=== PATIENT | female | born 1950 | race Caucasian/White ===

== ENCOUNTER 2019-11-07 01:40 | Outpatient (CLI) | payer MEDICARE, BC, SELFPAY ==
[2019-11-07 18:23] LABS: SARS-CoV-2 RNA PCR Negative
== END 2019-11-07 01:41 | disposition home or self-care (01) ==
LOC: ANHCOVIDDT 01:41
PROVIDERS: PCP Family Medicine; Visit Provider Internal Medicine Cardiovascular Disease
DX: Z01.812 Encounter for preprocedural laboratory examination (principal); Z20.828 Contact with and (suspected) exposure to other viral communicable diseases
CPT/HCPCS: 87635; C9803; U0003

== ENCOUNTER 2019-11-09 07:25 | Day surgery (SDC) | payer MEDICARE, BC, SELFPAY ==
[2019-11-08 10:56] VITALS: BMI 29.8
[2019-11-09] VITALS (9 sets, daily range): BP systolic 119–154; BP diastolic 75–103; PULSE 75–99; RESP 15–18; TEMP 36.2–37.1; O2SAT 95–99; BMI 30.5
--- NOTE | 2019-11-09 08:24 | PM.IMHP ---
H&P: HPI History of Present Illness Date/Time: 11/09/19 08:24 Chief complaint: Abnormal Stress Test/ Cardiomyopathy Narrative: Date of service: 11/09/2019 Janeth Fiore is a 69 year old female with history of cardiomyopathy and abnormal stress test, PARRISH, here for elective left heart catheterization with possible PCI. Her ejection fraction 30-35 last couple years and she has had progressive PARRISH for 8 months. The Lexiscan stress test in September 2019 showed an ejection fraction of 35%, moderate LV dysfunction, hypokinesis of the anterior segment, akinesis of the apical anterior and apical septal segments, a fixed apical anterior defect with mild kishore-infarct ischemia. In 2017 her stress test showed a small fixed apical defect factor apical thinning. She has not had any typical angina. She also has a history of PAF, on Pradaxa ( held for 2 days), TIA, LBBB, hypertension, hyponatremia ( secondary HCTZ ) and hyperlipidemia. She has multiple medication intolerances. She has history of allergy to shellfish but current thinking is, according to Up to Date, that shellfish allergies do not signify allergies to IV contrast and prophylaxis is not indicated. Review of Systems Constitutional: Constitutional: Reports fatigue and Reports lethargy Eyes: Eyes: Reports no additional eye complaints ENT: Denies epistaxis Cardiovascular: Cardiovascular: Denies chest pain, Denies pedal edema, Denies leg edema and Denies palpitations Respiratory: Respiratory: Denies chest congestion, Reports dyspnea and Reports dyspnea on exertion Gastrointestinal: Gastrointestinal: Denies abdominal pain and Denies hematochezia Genitourinary: Genitourinary: Denies hematuria Musculoskeletal: Musculoskeletal: Reports back pain Integumentary/Breasts: Skin/Breast: Denies rash Neurologic: Reports headache(s) (Miograines) Psychiatric: Psychiatric: Reports anxiety (Expresses apprehension about the cath) and Reports depression PMF Past Medical History Medical History (Updated 11/09/19 @ 08:35 by Janessa Leo MD) Anxiety and depression Basal cell carcinoma Cardiomyopathy Drug intolerance multiple drug intolerances including migraine secondary to valsartan and lisinopril, losartan causing abdominal pain and diarrhea and others. Hyperlipidemia Hypertension Hyponatremia LBBB (left bundle branch block) Migraine PAF (paroxysmal atrial fibrillation) TIA (transient ischemic attack) Family History Family History (Updated 11/09/19 @ 08:34 by Janessa Leo MD) Father Heart disease CABG in her early 50s redo in early 60s Hypertension Diabetes mellitus Social History Social History (Updated 11/09/19 @ 08:34 by Janessa Leo MD) Social History: , has grandchildren Smoking status: Never smoker Second hand tobacco smoke exposure: No Substance use: never Living arrangements: with family Spiritual care concerns: No Meds Home Medications and Allergies Home Medications Medication Instructions Recorded Confirmed Type Pradaxa 150 mg PO DAILY 01/14/19 11/08/19 History atorvastatin 10 mg PO DAILY 01/14/19 11/08/19 History odjomrtpgc-cizqdlxrpyprx-oggm 1 cap PO Q4-6H PRN #20 cap 01/14/19 11/08/19 Rx [Fioricet] diltiazem HCl 60 mg PO TID 01/14/19 11/08/19 History doxazosin 1 mg PO DAILY 01/14/19 11/08/19 History lorazepam 0.5 mg PO BID PRN 01/14/19 11/08/19 History metoprolol tartrate 100 mg PO Q12H 01/14/19 11/08/19 History dabigatran etexilate [Pradaxa] 150 mg PO DAILY 11/08/19 11/08/19 History fluticasone propionate INTRANASAL 11/08/19 History gabapentin 100 mg PO TID 11/08/19 11/08/19 History Allergies Allergy/AdvReac Type Severity Reaction Status Date / Time cefaclor Allergy Intermediate RASH Verified 10/03/17 22:22 lisinopril Allergy Unknown TINGLING Verified 07/25/18 18:15 ALL OVER/NAUSEA/HEADACHES losartan Allergy Unknown ACUTE ABD Verified 07/25/18 18:15 PAIN Penicillins Allerg
[2019-11-09 08:25] LABS: Basophils Absolute Auto 0.1 K/mm3 (0.0-0.1); Basophils Percent Auto 0.8 % (0.2-1.2); Eosinophils Absolute Auto 0.3 K/mm3 (0-0.3); Hematocrit 38.5 % (37.0-47.0); Hemoglobin 12.9 g/dL (12.0-15.0); Immature Granulocyte Absolute 0.03 K/mm3 (0.00-0.031); Immature Granulocyte Percent A 0.4 % (0-0.5); Lymphocytes Absolute Auto 1.94 K/mm3 (0.9-3.2); Lymphocytes Percent Auto 25.3 % (18.3-44.2); Mean Corpuscular HGB Conc 33.5 g/dl (32-36); Mean Corpuscular Hemoglobin 29.5 pg (26-34); Mean Corpuscular Volume 87.9 fl (80-100); Mean Platelet Volume 10.2 fl (7.4-10.4); Monocytes Absolute Auto 0.7 K/mm3 (0.1-0.6); Monocytes Percent Auto 8.9 % (2.6-8.5); Neutrophils Absolute Auto 4.7 K/mm3 (1.3-6.7); Neutrophils Percent Auto 60.6 % (45.5-73.1); Platelet Count Result 231 k/mm3 (150-375); Red Blood Count 4.38 M/mm3 (4.2-5.4); Red Cell Distribution Width 13.9 % (11.5-14.5); White Blood Count 7.7 K/mm3 (4.5-10.0)
[2019-11-09 08:34] LABS: Prothrombin Time 13.1 Seconds (11.1-14.7)
--- NOTE | 2019-11-09 08:36 | WPDMODSED ---
Moderate Sedation Note-Pt Data Patient Data Diagnosis: PARRISH, cardiomyopathy, abnormal stress test Present Complaint: PARRISH, cardiomyopathy, abnormal stress test Procedure to be performed/Plan: conscious sedation left heart catheterization possible PCI Allergies Allergy/AdvReac Type Severity Reaction Status Date / Time cefaclor Allergy Intermediate RASH Verified 10/03/17 22:22 lisinopril Allergy Unknown TINGLING Verified 07/25/18 18:15 ALL OVER/NAUSEA/HEADACHES losartan Allergy Unknown ACUTE ABD Verified 07/25/18 18:15 PAIN Penicillins Allergy Unknown Rash Verified 11/08/19 10:49 spironolactone Allergy Unknown TINGLING Verified 07/25/18 18:15 ALL OVER/BROUGHT ON ATRIAL FIB ATTACKS erythromycin base AdvReac Intermediate VOMITING. Verified 10/03/17 22:22 codeine AdvReac Vomiting Verified 11/08/19 10:49 lactase [From Dairy Aid] AdvReac Diarrhea Verified 11/09/19 08:37 mushroom AdvReac Abdominal Verified 11/09/19 08:37 Pain valsartan AdvReac Migraine Verified 11/08/19 10:49 seafood AdvReac Abdominal Uncoded 11/09/19 08:37 Pain Home Medications Medication Instructions Recorded Confirmed Type Pradaxa 150 mg PO DAILY 01/14/19 11/08/19 History atorvastatin 10 mg PO DAILY 01/14/19 11/08/19 History ynzzkprxbq-obixobiobeifb-qvck 1 cap PO Q4-6H PRN #20 cap 01/14/19 11/08/19 Rx [Fioricet] diltiazem HCl 60 mg PO TID 01/14/19 11/08/19 History doxazosin 1 mg PO DAILY 01/14/19 11/08/19 History lorazepam 0.5 mg PO BID PRN 01/14/19 11/08/19 History metoprolol tartrate 100 mg PO Q12H 01/14/19 11/08/19 History dabigatran etexilate [Pradaxa] 150 mg PO DAILY 11/08/19 11/08/19 History fluticasone propionate INTRANASAL 11/08/19 History gabapentin 100 mg PO TID 11/08/19 11/08/19 History Current Medications: Active Medications Sodium Chloride (Normal Saline Iv) 500 mls @ 100 mls/hr IV CONT .Q5H YUNI Sedation/Anesthesia: No previous sedation/anesthesia problems (including family history). [facility] Past Medical History Medical History (Updated 11/09/19 @ 08:35 by Janessa Leo MD) Anxiety and depression Basal cell carcinoma Cardiomyopathy Drug intolerance multiple drug intolerances including migraine secondary to valsartan and lisinopril, losartan causing abdominal pain and diarrhea and others. Hyperlipidemia Hypertension Hyponatremia LBBB (left bundle branch block) Migraine PAF (paroxysmal atrial fibrillation) TIA (transient ischemic attack) Family History Family History (Updated 11/09/19 @ 08:34 by Janessa Leo MD) Father Heart disease CABG in her early 50s redo in early 60s Hypertension Diabetes mellitus Social History Social History (Updated 11/09/19 @ 08:34 by Janessa Leo MD) Social History: , has grandchildren Smoking status: Never smoker Second hand tobacco smoke exposure: No Substance use: never Living arrangements: with family Spiritual care concerns: No Mod Sed Physical Exam Physical Exam Pre Procedural Exam: Normal: Appearance, Eyes, Ears, Nose, Neck, Throat, Airway, Lungs, Heart Size, Heart Rate, Heart Rhythm, Neuro Exam, Abdomen, Genitalia, Extremities and Skin Hours since solid foods: 12 Hours since liquid intake: 12 Internal Medicine - PN: Obj Da Meds/Results Medications: Active Medications Generic Name Dose Route Start Last Admin Trade Name Shahidq PRN Reason Stop Dose Admin Sodium Chloride 500 mls @ 100 mls/hr 11/09/19 07:00 Normal Saline Iv IV CONT .Q5H YUNI Labs CBC & Chem 7: 11/09/19 08:19 11/09/19 08:19 Labs: Laboratory Results - last 24 hr 11/09/19 11/09/19 08:19 08:19 WBC 7.7 RBC 4.38 Hgb 12.9 Hct 38.5 MCV 87.9 MCH 29.5 MCHC 33.5 RDW 13.9 Plt Count 231 MPV 10.2 Immature Gran % (Auto) 0.4 Neut % (Auto) 60.6 Lymph % (Auto) 25.3 [place] % (Auto) 8.9 H Eos % (Auto) 4.0 Baso % (Auto) 0.8 Lymph # (Auto)
[2019-11-09 08:37] LABS: Anion Gap 8 mmol/L (8-16); Blood Urea Nitrogen 7 mg/dL (7-17); Calcium 8.9 mg/dL (8.4-10.2); Carbon Dioxide 22 mmol/L (22-30); Chloride 103 mmol/L (98-107); Estimated CRCL calculation 79 ml/min; Estimated Glomerular Filt Rate > 60; Glucose 114 mg/dL (65-105); Potassium 3.9 mmol/L (3.4-5.0); Sodium 133 mmol/L (137-145)
--- NOTE | 2019-11-09 08:42 | SUR.PREOP ---
Patient arrived to [facility] DESK CL[facility] 5 with . PIV established and labs obtained and sent. Distal pulses assessed and groins prepped per policy. Patient and updated on plan of care and verbalize understanding. Will continue to monitor patient closely.
--- NOTE | 2019-11-09 09:51 | PM.OP ---
Procedure Note - Brief Procedure Note - Brief Date of procedure: 11/09/19 Pre-op diagnosis: Abnormal Stress Test/ Cardiomyopathy Post-op diagnosis: other ( nonischemic cardiomyopathy, mild CAD, mitral regurgitation) Procedure performed: conscious sedation left heart catheterization Description of procedure: uneventful left heart catheterization Anesthesia: local ( with conscious sedation) Surgeon: Janessa Leo MD Drains: No Packing: No Pathology: none sent Complications: No immediate complications Condition: stable Disposition: observation Findings: 40-50% mid Left anterior descending stenosis. Cardiomyopathy, EF 30-35% mild gradient across the aortic valve of 20 mm moderate mitral regurgitation
--- NOTE | 2019-11-09 14:52 | SUR.PHASEII ---
Pt. and spouse given discharge education on angioseal care. Pt. and spouse verbalize understanding of discharge education. Angioseal site noted to be soft, nontender upon discharge. No drainage noted to site upon discharge. Pt. escorted to car via wheelchair.
--- NOTE | 2019-11-09 21:46 | P.OP_ITS ---
Procedure Note - Detailed Date of procedure: 11/09/19 Pre-op diagnosis: Abnormal Stress Test/ Cardiomyopathy Post-op diagnosis: other ( CAD) Description of procedure: Procedure: 1. Conscious sedation 2. Left heart catheterization 3. Selective Coronary angiography 4. Left ventriculography 5. Angiography of the right common femoral artery Site: Right femoral artery Catheters: 5 [place] arterial sheath, 5 [place] 4 cm right and left Abhishek catheters, 5 [place] pigtail catheter Conscious sedation: The patient has no known prior history of adverse affects of conscious sedation. Oropharynx was clear. The patient is deemed a good candidate for conscious sedation. Conscious sedation began at: 9:23 a.m. Conscious sedation ended at: 9:40 a.m. Total conscious sedation time: 17 minutes Medications: Versed 1 mg, fentanyl 50 mcg IV push The patient had continuous hemodynamic monitoring, and was also continuously monitored by: The patient tolerated conscious sedation well. Detailed procedure: After informed consent the patient brought to the laboratory administrative director and the right femoral area was prepped and draped in the usual fashion. After conscious sedation and local anesthesia the right femoral artery was punctured and cannulated with the arterial sheath. Selective Coronary angiography was performed with the coronary catheters in multiple projections. These were withdrawn. The pigtail catheter was advanced into the central circulation and left ventricle for pressure measurements and left ventriculography which was performed in the MARIE projection. This was withdrawn. Angiography were of the right common femoral arteries performed, showing was patent and the sheath was in suitable position for a vascular closure device. The arterial sheath was removed,Angio-Seal was applied and hemostasis was obtained.Later the arterial sheath was removed and hemostasis was obtained.. The patient tolerated the procedure well with no complications. Estimated blood loss was negligible. Anesthesia: local ( with conscious sedation) Surgeon: Janessa Leo MD Estimated blood loss (mL): 10 Packing: No Pathology: none sent Complications: No immediate complications Condition: stable Disposition: observation Findings: Pressures: Aortic pressure 130-140/70 mm Hg and LV was 120-1 30/12 mmHg. Left coronary artery: The left main Left anterior descending and circumflex vessels were somewhat ectatic. There is a 40-50% stenosis of the mid Left anterior descending. Right coronary artery: The large ectatic right coronary artery was dominant and free of disease. Left ventriculogram: Left ventriculography was suboptimal secondary to PVCs but there was moderately Severe global hypokinesis, EF 30%, with moderate mitral regurgitation. Recommendations: The patient has some coronary disease and we will continue with primary prevention ( anticoagulant, statin, etc.). The bulk of her therapy will be aimed at improving left ventricular function medically. This is compromised by her multiple drug sensitivities. We may try eplerinone, Corlanor, and perhaps nitrates plus hydralazine. In addition she may be a candidate for Bi V ICD; discussed her risk of sudden cardiac . She wishes to discuss further in the office setting.
== END 2019-11-09 14:54 | disposition home or self-care (01) ==
PROVIDERS: PCP Family Medicine; Visit Provider Internal Medicine Cardiovascular Disease
PROC: 4A023N7 Measurement of Cardiac Sampling and Pressure, Left Heart, Percutaneous Approach (ICD-10-PCS; CPT 93452; principal; 2019-11-09 08:30)
DX: I25.10 Atherosclerotic heart disease of native coronary artery without angina pectoris (principal); I42.9 Cardiomyopathy, unspecified; I10 Essential (primary) hypertension; F41.8 Other specified anxiety disorders; E87.1 Hypo-osmolality and hyponatremia; I48.0 Paroxysmal atrial fibrillation; Z86.73 Personal history of transient ischemic attack (TIA), and cerebral infarction without residual deficits; I44.7 Left bundle-branch block, unspecified; G43.909 Migraine, unspecified, not intractable, without status migrainosus
CPT/HCPCS: 36415; 80048; 85025; 85610; 93458; C1760; C1887; C1894; G0269; J1644; J2250; J3010; J7040

== ENCOUNTER 2021-10-04 09:07 | Emergency (ER) | payer MEDICARE, BC, SELFPAY ==
--- NOTE | ~2021-10-04 | CT_ITS ---
EXAMINATION: CT brain wo con DATE: 10/04/2021 09:59 INDICATION: Head injury. Patient on aliquots. TECHNIQUE: Computed tomography (CT) of the head was performed without intravenous contrast. The dose- length product was 605.33 mGy-cm. Automated exposure control and iterative reconstruction technique w ere employed. COMPARISON: CT dated 11/03/2014 FINDINGS: There is a small air-fluid level in the left maxillary sinus. There is a left mastoid effus ion. No depressed skull fractures. Mild generalized atrophy. There are scattered mild periventricular and subcortical white matter changes, most likely related to small vessel ischemic disease (microang iopathy). There is intracranial atherosclerosis. IMPRESSION: 1. No acute intracranial abnormality. 2: Mild left maxillary sinus disease. 3: Chronic age-related findings. Reviewed, dictated and finalized at location A.
[2021-10-04 09:15] VITALS: BP 202/118; PULSE 90; RESP 16; TEMP 36.4; O2SAT 97
--- NOTE | 2021-10-04 09:19 | ED.HEATRA ---
HPI - Head Injury General Chief complaint: Head Injury Stated complaint: hit head on blood thinners last night, now SOL Time Seen by Provider: 10/04/21 09:10 Source: patient and RN notes reviewed Mode of arrival: ambulatory Limitations: no limitations History of Present Illness HPI Narrative: This is a 71 year old female with history of hypertension, valve disease, chronic anticoagulation who presents for evaluation of a head injury. Patient states yesterday afternoon around 530 pm she hit her head on the dresser. She was bending over and accidentally hit her left head on dresser. She denies having LOC, nausea, vomiting. This morning she woke up with mild left side headache so she came for evaluation. She states her headache has actually resolved at this time. She denies focal deficits. She states she is extremely anxious and she knows that her blood pressure is going to be high. 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 She denies chest pain. She has chronic shortness of breath but states it is better today. MD Complaint: head injury Onset (ago): hour(s) (14) Place: home Loss of Consciousness: no Location of injury: frontal Severity: mild Radiation: none Other Injuries: none Context: other anticoagulant use Associated symptoms: denies other symptoms Related Data Home Medications Medication Instructions Recorded Confirmed Pradaxa 150 mg PO DAILY 01/14/19 11/08/19 atorvastatin 10 mg PO DAILY 01/14/19 11/08/19 diltiazem HCl 60 mg tablet 60 mg PO TID 01/14/19 11/08/19 doxazosin 1 mg tablet 1 mg PO DAILY 01/14/19 11/08/19 lorazepam 0.5 mg tablet 0.5 mg PO BID PRN Anxiety 01/14/19 11/08/19 metoprolol tartrate 100 mg tablet 100 mg PO Q12H 01/14/19 11/08/19 dabigatran etexilate 150 mg 150 mg PO DAILY 11/08/19 11/08/19 capsule (Pradaxa) fluticasone propionate 50 intranasal 11/08/19 mcg/actuation nasal spray,suspension gabapentin 100 mg capsule 100 mg PO TID 11/08/19 11/08/19 Allergies Allergy/AdvReac Type Severity Reaction Status Date / Time cefaclor Allergy Intermediate RASH Verified 10/04/21 09:30 lisinopril Allergy Unknown TINGLING Verified 10/04/21 09:30 ALL OVER/NAUSEA/HEADACHES losartan Allergy Unknown ACUTE ABD Verified 10/04/21 09:30 PAIN Penicillins Allergy Unknown Rash Verified 10/04/21 09:30 spironolactone Allergy Unknown TINGLING Verified 10/04/21 09:30 ALL OVER/BROUGHT ON ATRIAL FIB ATTACKS erythromycin base AdvReac Intermediate VOMITING. Verified 10/04/21 09:30 codeine AdvReac Vomiting Verified 10/04/21 09:30 lactase [From Dairy Aid] AdvReac Diarrhea Verified 10/04/21 09:30 mushroom AdvReac Abdominal Verified 10/04/21 09:30 Pain valsartan AdvReac Migraine Verified 10/04/21 09:30 seafood AdvReac Abdominal Uncoded 11/09/19 08:37 Pain Review of Systems Review of Systems: All systems reviewed & are unremarkable except as noted in HPI and below Constitutional: Constitutional: Denies chills, Denies fatigue and Denies fever(s) Eyes: Eyes: Denies change in vision Cardiovascular: Cardiovascular: Denies chest pain and Denies radiating jaw, neck or arm pain Respiratory: Respiratory: Denies cough and Denies wheezing Gastrointestinal: Gastrointestinal: Denies abdominal pain, Denies nausea and Denies vomiting Neurologic: Denies confusion, Denies syncope, Reports headache(s), Denies focal weakness and Denies numbness PMFSH Past Medical History Medical History Anxiety and depression Basal cell carcinoma Cardiomyopathy Drug intolerance multiple drug intolerances including migraine secondary to valsartan and lisinopril, losartan causing abdominal pain and diarrhea and others. Hyperlipidemia Hypertension Hyponatremia LBBB (left bundle branch block) Migraine PAF (paroxysmal atrial fibrillation) TIA (transient ischemic attack) Family History Family H
[2021-10-04 09:31] VITALS: BP 175/97; PULSE 70; RESP 21; O2SAT 97
[2021-10-04 10:01] VITALS: BP 164/88; PULSE 73; RESP 19; O2SAT 98
[2021-10-04 10:31] VITALS: BP 170/85; PULSE 70; RESP 21; O2SAT 97
[2021-10-04 10:45] VITALS: BP 170/85; PULSE 70; RESP 16; O2SAT 97
== END 2021-10-04 10:45 | disposition home or self-care (01) ==
PROVIDERS: Emergency Provider General Practice; PCP Family Medicine
DX: S09.90XA Unspecified injury of head, initial encounter (principal); I10 Essential (primary) hypertension; I42.9 Cardiomyopathy, unspecified; E78.5 Hyperlipidemia, unspecified; I48.0 Paroxysmal atrial fibrillation; F41.9 Anxiety disorder, unspecified; F32.A Depression, unspecified; Z86.73 Personal history of transient ischemic attack (TIA), and cerebral infarction without residual deficits; Z79.02 Long term (current) use of antithrombotics/antiplatelets; J32.0 Chronic maxillary sinusitis; W22.03XA Walked into furniture, initial encounter
CPT/HCPCS: 70450; 99284

== ENCOUNTER 2024-07-24 02:48 | Emergency (ER) | payer MEDICARE, BC, SELFPAY ==
--- OUTSIDE RECORDS SUMMARY | 2024-07-24 02:50 | XMS_ITS ---
Author Organization [facility] [employer] [place] ([address]) Address [address] [place] [address] Care Team Providers Care Lace Cutter Name Role Phone Yifan Lauren Primary Care Provider Dr. Timi Alcazar Unavailable [phone] Vashti Graham Unavailable [phone] REASON FOR VISIT Refill Medications Medication SIG (Take, Route, Frequency, Duration) Notes Start Date End Date Status Nurtec 75 MG 0.5 tablet Orally on ce daily for 30 days 07/05/2024 Active Social History Sex Assigned At : Social History Observation Description Sex Assigned At Female Encounters Encounter Location Date Provider Diagnosis [address] [address] 07/05/2024 Vashti Graham Chronic migraine without aura, not intractable, without status migrainosus G43.709 Assessments Encounter Date Diagnosis (ICD Code) Assessment Notes Treatment Notes Treatment Clinical Notes Section Notes 07/05/2024 Chronic migraine without aura, not intractable, without status migrainosus (ICD-10 - G43.709) Plan Of Treatment Medication Medication Name Sig Start Date Stop Date Notes NURTEC ODT 75 MG 1/2 tab orally once *Please review for potential replacement for e-prescription and drug interaction check* Nurtec 75 MG 0.5 tablet Orally once daily for 30 days 07/05/2024 Next Appt Details Provider Name:Vashti alvarado, 09/21/2024 02:00:00 PM, [address] [facility], [address], [place], [address], Progress Notes * Wisam FIOREjocelinDOB: [birth year] (74 yo F)Acc No.[id number]:07/05/2024 Patient: Janeth WINSLOW :1950 A ge:74 Y S ex:Female Address:[address] [place] [address], [id number] * Refills Refill Nurtec Tablet Disintegrating, 75 MG, Orally, 16, 0.5 tablet, once daily, 30 days, Refills=5 Stop NURTEC ODT TABLET, DISINTEGRATING, 75 MG, orally, 1/2 tab, once * true * Date: Generated for Sloan nogueira/Uzair/Cecyitting on: 0 07/24/2024 02:49 AM CDT
--- OUTSIDE RECORDS SUMMARY | 2024-07-24 02:50 | XMS_ITS | Clinical Summary ---
Author Organization [facility] [place] [address] Address [address] [place] [address] Care Team Providers Care Automatic Silk Screen Printer Name Role Phone Jackson Reyes MD Unavailable [phone] Guillermina Augustin MD Unavailable [phone] Yifan Lauren MD Primary Care Provider Fariha Mantilla MD Unavailable Kimberly Hanks MD Unavailable [phone] Allergies Active Allergy Reactions Criticality Noted Date Comments Cefaclor Rash Medium Codeine Vomiting Low 01/24/2020 Dairy - All Forms And Ingredients Diarrhea,Stomach upset Low 11/14/2019 Doxycycline Vomiting Low 02/25/2024 Erythromycin Vomiting Low 02/22/2020 Galcanezumab-Gnlm Other (See comments) Low 04/07/2021 SOB and Aggravated her a fib and BP Fish Containing Products Diarrhea Low 10/21/2017 Hydralazine Other (See comments) Low 04/07/2021 Aggravated her a fib Hydrochlorothiazide Other (See comments) High 05/29/2018 Severe hyponatremia, Na+ 120 Lisinopril Headache Low 10/03/2018 Dizziness, violent migraines. Losartan Other (See comments) Low 03/26/2018 Abdominal discomfort and diarrhea 10/2017 Mushroom Diarrhea Low 10/21/2017 Stomach cramps Penicillins Rash,Urticaria Medium Shellfish Containing Products Diarrhea Low 10/21/2017 Stomach cramp Spironolactone Palpitations Low 10/03/2018 Valsartan Headache,Vision changes Medium 11/08/2019 Migraine Medications loratadine (CLARITIN) 10 mg tabletIndication s:Allergic Rhinitis Take 1 tablet (10 mg total) by mouth nightly Active acetaminophen (TYLENOL) 325 mg tablet Take 2 tablets (650 mg total) by mouth every 6 (six) hours as needed for pain Active famotidine (PEPCID) 10 mg tablet Take 1 tablet (10 mg total) by mouth as needed for heartburn Active rimegepant (Nurtec ODT) tablet,disintegr ating Take 1 tablet (75 mg total) by mouth every other day 16 tablet 11 06/09/19 24 Active atorvastatin (LIPITOR) 10 mg tablet TAKE 1 TABLET(10 MG) BY MOUTH EVERY NIGHT 90 tablet 2 10/01/19 24 Active fluticasone propionate (FLONASE) 50 mcg/actuation nasal sprayIndications :Nasal congestion SHAKE LIQUID AND USE 2 SPRAYS IN EACH NOSTRIL DAILY NEEDED FOR RHINITIS 48 g 1 01/06/20 24 Active ubrogepant (Ubrelvy) 50 mg tablet Take 1 tablet (50 mg total) by mouth once as needed for migraine May repeat dose once in 2 hours if no relief. Do not exceed 2 doses in 24 hours. Active apixaban (Eliquis) 5 mg tablet Take 1 tablet (5 mg total) by mouth 2 (two) times a day 60 tablet 04/24/19 25 Active metoprolol tartrate (LOPRESSOR) 25 mg immediate release tabletIndication s:Essential hypertension TAKE 1 TABLET(25 MG) BY MOUTH TWICE DAILY 180 tablet 1 05/01/19 25 Active metoprolol (LOPRESSOR) 100 mg tablet TAKE 1 TABLET(100 MG) BY MOUTH TWICE DAILY 180 tablet 1 05/01/19 25 Active amLODIPine (NORVASC) 5 mg tablet TAKE 1 TABLET(5 MG) BY MOUTH DAILY 90 tablet 1 05/23/19 25 Active doxazosin (CARDURA) 1 mg tablet TAKE 1 TABLET(1 MG) BY MOUTH EVERY NIGHT 90 tablet 2 06/23/19 25 Active olmesartan (BENICAR) 20 mg tablet TAKE 1 TABLET(20 MG) BY MOUTH DAILY 30 tablet 11 06/28/19 25 Active olmesartan (BENICAR) 20 mg tablet TAKE 1 TABLET(20 MG) BY MOUTH DAILY 30 tablet 11 07/16/19 24 025 Discontinued Active Problems Problem Noted Date Diagnosed Date Seasonal allergies 06/15/2024 Assessment & Plan (06/18/2024 4:24 PM CDT): - chronic condition, well controlled - mostly seasonal, environmental allergies noted - worse in spring and fall - uses Loratadine 10 mg nightly PRN and Flonase nasal spray - The current medical regimen is effective; continue present plan and medications. History of nonmelanoma skin cancer 06/15/2024 Overview (06/18/2024): - follows with dermatology annually Assessment & Plan (06/15/2024 10:50 AM CDT): - hx of BCC of nose - follows with dermatology - [facility] dermatology - has skin lesion over left forearm she has f/u visit about Fear of needles 06/15/2024 Assessment & Plan (06/18/2024 4:20 PM CDT): - reports aversion to needles which is why she reports does not do lab works easily Mammogram declined 02/10/2023 Assessment & Plan (06/18/2024 4:22 PM CDT): - Discussed risk of not screening. Patient elects to continue to defer for now. She understands the risk. - Noted 10/2023, confirmed on 06/2024 States she might change her mind in future Assessment & Plan (10/29/2023 3:22 PM CDT): Discussed risk of not screening. Patient elects to continue to defer for now. She understands the risk Assessment & Plan (02/10/2023 6:45 PM AUTO PARTS CLERK): Discussed the recommendation for mammogram screening through least age 75 or 80. Reviewed the [place] screening has been shown to help change outcomes in regards to potential breast cancers in the delay in diagnosis due to failure to screen can lead to poor outcomes including significant morbidity and mortality. She expresses understanding and declines all breast cancer screening at current time. Patient accepts the risk associated with failure to screen Complete heart block 09/30/2022 Lactose intolerance 08/04/2022 Colonoscopy refused 08/04/2022 Assessment & Plan (06/18/2024 4:21 PM CDT): - Patient still declines colonoscopy and stool based screening. She may reconsider Cologuard in the future Noted 10/2023, verified 06/2024 Assessment & Plan (10/29/2023 3:22 PM CDT): Patient still declines colonoscopy and stool based screening. She may reconsider Cologuard in the future Assessment & Plan (02/10/2023 6:43 PM AUTO PARTS CLERK): Discussed risks and benefits associated with screening for colon cancer versus failure to screening. Patient understands the risk of declining all colon cancer screening including colonoscopy as well as stool based testing. She is currently asymptomatic. Patient is aware that any delay in diagnosis by failure screening could lead to poor outcomes including . She is accepting this risk and continues to decline screening for colon cancer Nonrheumatic tricuspid valve regurgitation 10/14 Assessment & Plan (06/18/2024 4:38 PM CDT): - most recent Echo as shown below, has known moderate TVR and MVR - has known afib and cardiomyopathy with combined diastolic and systolic dysfunction Echo 05/2023 CONCLUSIONS: Mild concentric left ventricular hypertrophy. Mild enlargement of left ventricle cavity. Diastolic dysfunction is present. Ejection fraction is visually estimated at 30 %. Ejection fraction is measured at 39 %. Global Longitudinal Strain is -9 %. GLS is abnormal. Normal right ventricular size. Mild right ventricular hypokinesis. Linear artifact in right ventricle suggestive of catheter(s), pacemaker lead(s), or ICD lead(s). There is moderate enlargement of left atrium. There is mild enlargement of right atrium. Moderate mitral valve regurgitation. No evidence of hemodynamically significant aortic stenosis by Doppler. Aortic cusps appear mildly sclerotic. Trileaflet aortic valve. Mild aortic valve regurgitation. Estimated peak RVSP is 45 mmHg. Moderate tricuspid regurgitation. Mild pulmonic regurgitation. Nonrheumatic aortic valve insufficiency 10/15/19 22 H/O atrioventricular priya ablation 09/10/2020 Permanent atrial fibrillation 05/16/2020 Assessment & Plan (06/18/2024 4:27 PM CDT): - chronic condition, well controlled/stable - underwent AV node ablation also by Dr. Reyes in May 2020. - History of permanent AFib - s/p [employer] BiVentricular ICD implanted 02/[address] Reyes at [facility] - Continues on Metoprolol 125 mg BID and anticoagulated with Eliquis 5 mg BID - Continue care per Cardiology and electrophysiology The current medical regimen is effective; continue present plan and medications. Assessment & Plan (10/29/2023 3:21 PM CDT): History of permanent AFib status post ablation with associated placement of by V pacemaker AICD. Continue medication and care per Cardiology and electrophysiology. Remains on Eliquis for stroke prevention Assessment & Plan (02/10/2023 6:44 PM AUTO PARTS CLERK): History of permanent AFib status post ablation with associated placement of by V pacemaker AICD. Continue medication and care per Cardiology and electrophysiology. 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 Compensated. Continue beta sara and ARB. This is done well okay to defer change your Entresto for now Assessment & Plan (02/10/2023 6:58 PM AUTO PARTS CLERK): Chronic. Compensated. Continue care per Cardiology and electrophysiology Biventricular automatic impl antable cardioverter defibrillator in situ 03/04/2020 Assessment & Plan (06/18/2024 4:25 PM CDT): Continue medication and care per electrophysiology Assessment & Plan (02/10/2023 6:42 PM AUTO PARTS CLERK): Continue medication and care per electrophysiology Coronary artery disease invo lving [place] coronary artery of [place] heart without angina pectoris 01/08/2020 Assessment & Plan (10/29/2023 3:18 PM CDT): Chronic. Denies chest pain. Continue risk factor modification with atorvastatin and Eliquis. Given patient is on full therapeutic anticoagulation okay to defer use of aspirin Assessment & Plan (02/10/2023 6:42 PM AUTO PARTS CLERK): Chronic. Continue risk factor modification for Cardiology. She is currently just on atorvastatin 10 mg and not a high-intensity statin. Last LDL was under 70 so we can continue on current dose for now. Patient is on Eliquis so they previously deferred use of antiplatelet agents due to bleeding risk Essential hypertension 10/03/2019 Assessment & Plan (06/18/2024 4:21 PM CDT): BP Readings from Last 3 Encounters: 06/15/24 144/86 02/25/24 142/86 11/05/23 125/70 Chronic, suboptimally controlled Controlled with metoprolol 125 mg BID and amlodipine 5 mg daily as well as Olmesartan 20 mg daily and also on Doxazosin. Reports multiple drug intolerances with higher doses so has been on several medications Continue medication. Encouraged healthy diet and lifestyle Assessment & Plan (10/29/2023 3:17 PM CDT): Chronic. Controlled with metoprolol and amlodipine as well as olmesartan. Continue medication. Encouraged healthy diet and lifestyle Assessment & Plan (02/10/2023 6:41 PM AUTO PARTS CLERK): Chronic. Poorly controlled in office. Patient does have a component of white coat hypertension. She should monitor blood pressure occasionally at home when she is feeling calm. We will defer blood pressure medication adjustments today as patient notes she has severe anxiety over this visit. We did encourage as she works on trying to follow a healthy diet, get regular exercise and try to manage her stress and anxiety Nonrheumatic mitral valve regurgitation 10/03/19 Assessment & Plan (06/18/2024 4:39 PM CDT): - most recent Echo as shown below, has known moderate TVR and MVR - has known afib and cardiomyopathy with combined diastolic and systolic dysfunction Echo 05/2023 CONCLUSIONS: Mild concentric left ventricular hypertrophy. Mild enlargement of left ventricle cavity. Diastolic dysfunction is present. Ejection fraction is visually estimated at 30 %. Ejection fraction is measured at 39 %. Global Longitudinal Strain is -9 %. GLS is abnormal. Normal right ventricular size. Mild right ventricular hypokinesis. Linear artifact in right ventricle suggestive of catheter(s), pacemaker lead(s), or ICD lead(s). There is moderate enlargement of left atrium. There is mild enlargement of right atrium. Moderate mitral valve regurgitation. No evidence of hemodynamically significant aortic stenosis by Doppler. Aortic cusps appear mildly sclerotic. Trileaflet aortic valve. Mild aortic valve regurgitation. Estimated peak RVSP is 45 mmHg. Moderate tricuspid regurgitation. Mild pulmonic regurgitation. Migraine without status migrainosus, not intract able 01/26/2017 Overview (06/18/2024): Follows with Neurology Assessment & Plan (06/15/2024 10:37 AM CDT): Chronic condition, better controlled Currently on Nurtec 75 mg 1/2 tablets every day per her neurologist for prevention Recently started on Ubrelvy 50 mg daily PRN for acute headache Has prior intolerance to Emgality, Quilipta, Gabapentin previously Reports cannot tolerate music as well Reports worse with change in weather Follows and managed by Neurology. Assessment & Plan (10/29/2023 3:21 PM CDT): Chronic. Has done fairly well with Nurtec 75 mg tablets every 48 hours but often times actually takes a half tab daily had the direction of her neurologist. Has prior intolerance to Emgality and clipped a. Also failed gabapentin previously Assessment & Plan (02/10/2023 6:40 PM AUTO PARTS CLERK): Chronic. Follows with Neurology. On Nurtec every 48 hours given intolerance of multiple other medications. Continue medication and care per specialty Primary insomnia 11/19/2016 Assessment & Plan (06/18/2024 4:23 PM CDT): - Chronic condition, not at goal - Noted after she started having heart condition and was given lorazepam while she was in hospital at first - Her previous neurologist was giving her 0.25 mg lorazepam a day Prior PCP weaned her off the medication and has been off of it with - But she still has sleep difficulties Assessment & Plan (10/29/2023 3:20 PM CDT): Mild. Has been doing very well. use of lorazepam. She is aware of the side effects associated with this medication. Use sparingly. Caution with risk for sedation, confusion and falls. Rx refilled Assessment & Plan (02/10/2023 6:44 PM AUTO PARTS CLERK): Patient has a degree of anxiety over health care. Monitor. Encouraged to work on coping strategies. Patient needs to keep the nightly lorazepam more sparingly. We did discuss the risk of sedation, confusion, falls, delirium and dementia associated with use of benzodiazepines. We did discuss that these medications are to be used with extreme caution in elderly. Ideally I do not want her using this regularly due to these risk. She wishes to continue for now on expresses understanding of the potential severe adverse events associated with this class of medication Dilated cardiomyopathy 02/25/2015 Assessment & Plan (06/18/2024 4:36 PM CDT): Chronic. Well Compensated. Has combined diastolic and systolic dysfunction Continue metoprolol. Monitor Following with Cardiology, see most recent Echo results - History of cardiomyopathy, complicated by medication intolerances but improved after AV node ablation and placement of a biventricular pacemaker/ICD. Euvolemic. - continue metoprolol 125 mg BID per cardiology - already has biventricular ICD in place Echo 05/2023 CONCLUSIONS: Mild concentric left ventricular hypertrophy. Mild enlargement of left ventricle cavity. Diastolic dysfunction is present. Ejection fraction is visually estimated at 30 %. Ejection fraction is measured at 39 %. Global Longitudinal Strain is -9 %. GLS is abnormal. Normal right ventricular size. Mild right ventricular hypokinesis. Linear artifact in right ventricle suggestive of catheter(s), pacemaker lead(s), or ICD lead(s). There is moderate enlargement of left atrium. There is mild enlargement of right atrium. Moderate mitral valve regurgitation. No evidence of hemodynamically significant aortic stenosis by Doppler. Aortic cusps appear mildly sclerotic. Trileaflet aortic valve. Mild aortic valve regurgitation. Estimated peak RVSP is 45 mmHg. Moderate tricuspid regurgitation. Mild pulmonic regurgitation. Follows with Cardiology - Dr. Mantilla Has an manager cost - She has a biventricular ICD in place Hx of complete heart block Assessment & Plan (10/29/2023 3:17 PM CDT): Chronic. Compensated. Continue metoprolol. Monitor Assessment & Plan (02/10/2023 6:39 PM AUTO PARTS CLERK): Chronic. Compensated. Continue medication and care per Cardiology. Assessment & Plan (11/28/2016 6:52 PM CDT): EF 45-50%; may have a mild cardiomyopathy Chronic anticoagulation 02/25/2015 Assessment & Plan (06/18/2024 4:21 PM CDT): Chronic. Known Atrial fibrillation Tolerates Eliquis 5 mg BID. Bleeding precautions Continue current treatment due to risk of CVA with Afib Assessment & Plan (10/29/2023 3:17 PM CDT): Chronic. Tolerates Eliquis. Bleeding precautions recommended Assessment & Plan (02/10/2023 6:39 PM AUTO PARTS CLERK): Chronic. For atrial fibrillation. Bleeding precautions recommended. Continue medication care per Cardiology Multiple-type hyperlipidemia 02/25/2015 Assessment & Plan (06/18/2024 4:22 PM CDT): Chronic. Has been controlled with the Atorvastatin 10 mg daily. Continue. She has known Atrial fibrillation Recheck labs, order placed No results found for: LDLCALC Assessment & Plan (10/29/2023 3:17 PM CDT): Chronic. Has been controlled with the atorvastatin. Continue. Assessment & Plan (02/10/2023 6:40 PM AUTO PARTS CLERK): Chronic. Tolerates medication. Patient should be having her liver enzymes checked a least once yearly but it has not been done in a few years. Stressed importance of this being checked. Patient is very resistant to having blood draws but is willing to consider in the future. We will place orders on file for an updated CMP to be done at some point. We did discuss that there is rare risk for liver irritation/inflammation with statin so this really does need to be done a least once yearly. Patient will consider getting the ordered blood work History of stroke 02/25/2015 Overview (06/18/2016): TIA due to embolism Assessment & Plan (10/29/2023 3:19 PM CDT): Chronic. Her prior stroke was related to AFib and not cholesterol illness. Given her LDL has been less than 70 we have deferred intensification of her statin. She will stay on her atorvastatin. Continue Eliquis for stroke prevention Assessment & Plan (02/10/2023 6:40 PM AUTO PARTS CLERK): Patient has a history of an occult stroke/TIA due to embolic episode due to AFib. Continue risk factor modification. She is on NOAC Resolved Problems Problem Noted Date Diagnosed Date Resolved Date Medication intolerance 04/07/202106/15 Encounter for adjustment of biventricular implantable cardioverter-defibrillator (ICD) 07/02/2020 06/15/2024 Abnormal stress test 10/03/2019 022 At risk for sudden cardiac 10/03/2019 10/14/2021 Basal cell carcinoma (BCC) of nasal tip 05/16/2019 06/18/2024 Basal cell carcinoma (BCC) of nasal tip 05/16/2019 10/14/2021 Medication overuse headache 04/06/2019 06/15/2024 Medication side effects 11/28/201603/16 Assessment & Plan (11/28/2016 6:47 PM CDT): Pt's sensitivity to meds will limit therapy. Feels very nauseated now, thinks 2nd diltiazem. Feels she does better w/ short-acting meds than long-acting meds. Carotid atherosclerosis 12/06/2015 04/0 08/2024 Assessment & Plan (10/29/2023 3:19 PM CDT): Chronic. Continue medication and care per Cardiology. Continue risk factor modification Assessment & Plan (02/10/2023 6:43 PM AUTO PARTS CLERK): Chronic. Continue medication and care per Cardiology. Continue risk factor modification Persistent atrial fibrillation 02/25/2015 12/07/2022 Overview (05/15/2020): Assessment & Plan (11/28/2016 6:50 PM CDT): Has been controlled until recently. More problems w/ PAF now Benign hypertension 02/25/2015 10/15/19 Overview (06/18/2016): HTN (hypertension), benign Left bundle branch block (LBBB) 02/25/2015 10/14/2021 Overview (06/18/2016): LBBB (left bundle branch block) Encounters Date Type Department Care Team Description 07/14/2024 Results Follow-Up [facility] Cardiology at [address] [phone] Fariha Mantilla MD 07/13/2024 2:30 PM CDT Ancillary Procedure [facility] Cardiology at [address] [phone] Chronic combined systolic and diastolic CHF (congestive heart failure) (HCC); Dilated cardiomyopathy (HCC); Coronary artery disease involving [place] coronary artery of [place] heart without angina pectoris; Nonrheumatic mitral valve regurgitation; Nonrheumatic aortic valve insufficiency; Nonrheumatic tricuspid valve regurgitation; Biventricular automatic implantable cardioverter defibrillator in situ 06/20/2024 11:00 AM CDT Office Visit [facility] Cardiology at [address] [phone] Fariha Mantilla MD Chronic anticoagulation (Primary Dx); Nonrheumatic mitral valve regurgitation; Nonrheumatic tricuspid valve regurgitation; Chronic combined systolic and diastolic CHF (congestive heart failure) (HCC); Coronary artery disease involving [place] coronary artery of [place] heart without angina pectoris; Dilated cardiomyopathy (HCC); Nonrheumatic aortic valve insufficiency 06/15/2024 10:15 AM CDT Office Visit [facility] Primary Care at [address] [phone] Yifan Lauren MD Colonoscopy refused (Primary Dx); Primary insomnia; Mammogram declined; Chronic anticoagulation; Chronic migraine without aura without status migrainosus, not intractable; Multiple-type hyperlipidemia; Permanent atrial fibrillation (HCC); Essential hypertension; Need for hepatitis B screening test; Seasonal allergies; History of nonmelanoma skin cancer; Fear of needles; Biventricular automatic implantable cardioverter defibrillator in situ; Dilated cardiomyopathy (HCC); Nonrheumatic mitral valve regurgitation; Nonrheumatic tricuspid valve regurgitation from Last 3 Months Immunizations Immunization Administration Dates Next Due Influenza, Quad, Adjuvantate d, Intramuscular 12/04/2022 Influenza, Quadrivalent, Hig h Dose, Preservative Free, Intrr 12/26/2021,12/05/2020,12/08/2019 Influenza, Quadrivalent, Spl it, Intramuscular 01/13/2019 Influenza, Quadrivalent, Spl it, Preservative Free, Intramuscular 01/13/2019 Influenza, Trivalent, High D ose, Split, Preservative Free, Intramuscular 12/09/2023,12/17/2017,12/14/2017,01/15,12/25/2014 Influenza, Trivalent, IM (MDV) 02/05/2014,2013 Influenza, Unspecified 11/29/2019 Meningococcal ACWY, Unspecified 01/16/2016 Meningococcal MCV4P (Menactra) 01/16/2016 Pneumococcal Conjugate Pcv20 12/26/2021 RSV Vaccine, Pref, Recombina nt, Subunit, Adjuvanted, PF, IM (Arexvy) 12/04/2022 Tdap 10/06/2023,03/21/2013 ZOSTER Recombinant 01/13/2019,10/10/2018 Surgical History Surgery Date Site/Laterality Comments BREAST BIOPSY Bilateral INSERT / REPLACE / REMOVE PACEMAKER CATARACT EXTRACTION 03/15/2015 - 03/14/2016 AV NODE ABLATION Medical History Medical History Date Comments Hypertension 1991 A-fib (HCC) Motion sickness Basal cell carcinoma 2019 nose Stroke (HCC) 2014 CHF (congestive heart failure) ([facility]) Anxiety Migraines 1969 Lactose intolerance 08/04/2022 Family History Medical History Relation Name Comments Arrhythmia Brother Diabetes type II Father Mitesh Espinoza Diabetes me llitus type 2; Heart attack Father Mitesh Espinoza Heart disease Father Mitesh Espinoza Heart disease; ELU 02/25/2015 -CABG and redo, first in late 50's/early 60's. HTN, smoker. Hypertension Father Mitesh Espinoza Hypertension; Diabetes Maternal Grandmother Cecily Gallardo Diabete s mellitus; Heart disease Maternal Grandmother Cecily Gallardo Hearing loss Mother Krissy Espinoza Heart disease Mother Krissy Espinoza Other Other Family history of CHF and old age; Diabetes Paternal Grandmother Lovely Espinoza Alzheimer's disease Sister 1 Rashida Lewis Arrhythmia Sister 2 Alzheimer's disease Sister 3 Rashida Lewis Colon cancer Neg Hx Relation Name Status Comments Brother Father Mitesh Espinoza Maternal Grandfather Maternal Grandmother Cecily Gallardo Mother Krissy Espinoza Alive Other Paternal Grandmother Lovely Espinoza Alive Sister 1 Rashida Lewis Sister 2 Alive Sister 3 Rashida Lewis Alive Social History Tobacco Use Types Packs/Day Years Used Date Smoking Tobacco: Never Smokeless Tobacco: Never Tobacco Cessation:Counseling Given: Not Answered Alcohol Use Standard Drinks/Week Comments No 0 (1 standard drink = 0.6 oz pur e alcohol) AUDIT-C Answer Date Recorded Q1: How often do you have a drink containing alcohol? Never 10/29/2023 Q2: How many drinks containi ng alcohol do you have on a typical day when you are drinking? Patient does not drink Q3: How often do you have si x or more drinks on one occasion? 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 Oxygen Saturation 94% 06/20/2024 11:02 AM CDT Inhaled Oxygen Concentration - - Weight 70.8 kg (156 lb) 06/20/2024 11:02 AM CDT Height 165.1 cm (5' 5 ) 06/20/2024 11:02 AM CDT Body Mass Index 25.96 06/20/2024 11:02 AM CDT Plan of Treatment Health Maintenance Due Date Last Done Comments Osteoporosis Screening-Bone Density Scan 1950 Hepatitis B Screening 1968 Well Visit 65+ 02/11/2024 02/10/2023 Covid-19 Vaccine ( season) 2024 12/09/2023, 07/01/2023, 12/05/2022, Additional history exists Colon Cancer Screening-Colonoscopy 06/15/2025 Postponed from 1950 (Patient declined, but will receive in the future) Depression Screening 06/15/2025 06/15/2024, 10/29/2023, 02/10/2023, Additional history exists Fall Risk Assessment 06/15/2025 06/15/2024, 10/29/2023, 02/10/2023, Additional history exists DTaP/Tdap/Td Vaccine (3 - Td or Tdap) 10/05/2033 10/06/2023, 03/21/2013 Zoster Vaccine Completed 01/13/2019, 10/10/2018 Pneumococcal vaccine 65+ Completed 12/26/2021 Hepatitis C Screening Completed 05/25/2023 Influenza Vaccine Completed 12/09/2023, , 12/26/2021, Additional history exists Medical Devices Implanted Type Area Velvet Cutter Device Identifier Shelf Expiration Date Model / Serial / Lot [employer] [id number] System 6-12fr Mvp Venous Closure Vascade - [id number] Implanted:Qty: 1 on 05/28/2020 by Jackson Reyes MD at [facility] Collagen [employer] 03/20/2022 [id number] / / [id number] HauteDay [id number] Cardiac Hendrum Hf 2 Chamber Df4 Inline Cnctr Is4 - [id number] - [id number] Implanted:Qty: 1 on 02/27/2020 by Jackson Reyes MD at [facility] ICD Medtronic Inc [id number] 06/09/2021 [id number] / [id number] / Description:CRTD generator VF 222 bpm Burst x1, 40J x6 VT Monitor 200 bpm Medtronic Cardiac Rhythm Mgmt [id number] Sprint Quattro Secure S 55cm Df-4 Tripolar Screw Defibrillator - [id number] - [id number] Implanted:Qty: 1 on 02/27/2020 by Jackson Reyes MD at [facility] Lead Medtronic Inc 12/05/2021 [id number] / [id number] / Description:RV lead Medtronic Inc [id number] Attain Performa Starfix 5.3fr 5.1fr 88cm Quadripolar Is4-Llll Latex Free - [id number] - [id number] Implanted:Qty: 1 on 02/27/2020 by Jackson Reyes MD at [facility] Lead Medtronic Inc 06/17/2020 [id number] / [id number] / Description:LV/ CS lead Medtronic Cardiac Rhythm Mgmt 5076-45 Capsurefix Novus 6.2fr 2mm 45cm Bipolar Screw In Implantable - [id number] - [id number] Implanted:Qty: 1 on 02/27/2020 by Jackson Reyes MD at [facility] Lead Medtronic Inc 11/29/2021 5076-45 / [id number] / Description:RA lead Procedures Procedure Name Priority Date/Time Associated Diagnosis Comments TRANSTHORACIC ECHO (TTE) COMPLETE W DOPPLER/CF WO CONTRAST Routine 07/13/2024 2:44 PM CDT Chronic combined systolic and diastolic CHF (congestive heart failure) (HCC) Dilated cardiomyopathy (HCC) Coronary artery disease involving [place] coronary artery of [place] heart without angina pectoris Nonrheumatic mitral valve regurgitation Nonrheumatic aortic valve insufficiency Nonrheumatic tricuspid valve regurgitation Biventricular automatic implantable cardioverter defibrillator in situ POCT LIPID PANEL Routine 06/20/2024 10:5 9 AM CDT Coronary artery disease involving [place] coronary artery of [place] heart without angina pectoris HEPATITIS C ANTIBODY Routine 05/25/2023 1:25 PM CDT Encounter for Medicare annual wellness exam Encounter for hepatitis C screening test for low risk patient Family history of thyroid disease from Last 3 Months or Most Recently Relevant to Health Maintenance Results * TRANSTHORACIC ECHO (TTE) COMPLETE W DOPPLER/CF WO CONTRAST (07/13/2024 2:44 PM CDT) Estimated EF 55 % CONS SCIMAGE EF Mod BP 61 % CONS SCIMAGE Anatomical Region Laterality Modality Ultrasound 07/13/2024 2:24 PM CDT Narrative 07/13/2024 4:03 PM CDT [facility] [address] , [address], [place] [address] P:[phone] P:[phone] Echocardiographic Report Patient Name: JANETH JOSHUA D : 1950 Study Date: 07/13/2024 2:24:01 PM Gender: F Tech: Location: EDW Ref Provider: FARIHA MANTILLA Height(Cm): 165 BSA: 1.8 Weight(Kg): 70.8 Heart Rate: 76 BP: 128 / 80 Quality: Good Order Provider: FARIHA MANTILLA PROCEDURES: Echocardiographic Report: Transthoracic echocardiogram with complete 2D, M-Mode, and color Doppler examination. With Strain Analysis. INDICATIONS: CHF, Dilated CM, CAD, MR, AI, TR, ICD. MEASUREMENTS: 2D/MM Value Range Doppler Value Range EF Mod BP 61 % [ 54 - 74 ] AV Mean PG 3 mmHg EF Teich MM 48 % [ 54 - 74 ] AV Peak Norman 1.24 m/s [ 1.00 - 1.70 ] Estimated EF 55 % AV Peak PG 6 mmHg LVIDd 2D 4.35 cm [ 3.80 - 5.20 ] AV VTI 22.90 cm LVIDd MM 4.09 cm [ 3.80 - 5.20 ] LVOT Peak Onrman 0.81 m/s [ 0.70 - 1.10 ] LVIDs 2D 3.33 cm [ 2.20 - 3.50 ] LVOT VTI 16.39 cm LVIDs MM 3.11 cm [ 2.20 - 3.50 ] MV E Peak Norman 0.91 m/s [ 0.60 - 1.30 ] LVPWd 2D 1.22 cm [ 0.60 - 0.90 ] MV A Peak Norman 0.26 m/s [ 1.00 - 1.20 ] LVPWd MM 1.20 cm [ 0.60 - 0.90 ] MV Decel Time 133 msec [ 104 - 258 ] IVSd 2D 0.95 cm [ 0.60 - 0.90 ] PV Peak Norman 0.61 m/s [ 0.40 - 0.80 ] IVSd MM 1.36 cm [ 0.60 - 0.90 ] TR Peak Norman 2.75 m/s [ 1.00 - 2.80 ] LA Dimension MM 4.57 cm [ 2.70 - 3.80 ] TR Peak PG 30 mmHg AoR Diam MM 3.70 cm [ 2.70 - 3.70 ] RVSP 40.00 mmHg [ 10.00 - 36.00 ] LA Volume Index 39 cc/m2 [ 16 - 34 ] Lateral E` 0.10 m/s [ 0.10 - 0.15 ] E/E` 10 2D/MM Value Range Doppler Value Range - FINDINGS: Interpretation Site: Exam was interpreted at [facility] ER. Left Ventricle: Normal left ventricular systolic function. No focal wall motion abnormalities. Moderate concentric left ventricular hypertrophy. Mild enlargement of left ventricle cavity. Diastolic dysfunction is present. Ejection fraction is measured at 61 %. Ejection Fraction is visually estimated to be 55 %. Global Longitudinal Strain is -12 %. GLS is abnormal. Right Ventricle: Normal right ventricular size. Normal right ventricular systolic function. Linear artifact in right ventricle suggestive of catheter(s), pacemaker lead(s), or ICD lead(s). Left Atrium: There is severe enlargement of left atrium. Right Atrium: There is severe enlargement of right atrium. Linear artifact in right atrium suggestive of catheter(s), pacemaker lead(s), or ICD lead(s). Atrial Septum: Normal atrial septum. Mitral Valve: Normal appearance of the mitral valve. Mild to moderate mitral valve regurgitation. There is no hemodynamically significant mitral stenosis by Doppler. Aortic Valve: No evidence of hemodynamically significant aortic stenosis by Doppler. Aortic cusps appear mildly sclerotic. Trileaflet aortic valve. Mild to moderate aortic valve regurgitation. Tricuspid Valve: Normal appearance of the tricuspid valve. Mild pulmonary hypertension based on right ventricular systolic pressure. Estimated peak RVSP is 40-45 mmHg. Severe tricuspid regurgitation. Pulmonic Valve: Normal appearance of the pulmonic valve. No pulmonic stenosis. Mild pulmonic regurgitation. Pericardium: Normal pericardium with no significant pericardial effusion. Aorta: There is mild atherosclerosis in the aortic root. IVC: Dilated IVC with respiratory collapse consistent with elevated right atrial pressure (10-15 mmHg). CONCLUSIONS: Normal left ventricular systolic function. No focal wall motion abnormalities. Moderate concentric left ventricular hypertrophy. Mild enlargement of left ventricle cavity. Diastolic dysfunction is present. Ejection fraction is measured at 61 %. Ejection Fraction is visually estimated to be 55 %. Global Longitudinal Strain is -12 %. GLS is abnormal. There is severe enlargement of left atrium. There is severe enlargement of right atrium. Linear artifact in right atrium suggestive of catheter(s), pacemaker lead(s), or ICD lead(s). Mild to moderate mitral valve regurgitation. Aortic cusps appear mildly sclerotic. Mild to moderate aortic valve regurgitation. Mild pulmonary hypertension based on right ventricular systolic pressure. Estimated peak RVSP is 40-45 mmHg. Severe tricuspid regurgitation. Mild pulmonic regurgitation. Normal sinus rhythm. Electronically Signed By: Fariha Mantilla MD 07/13/2024 4:02:44 PM CDT Procedure Note Fariha Mantilla MD - 07/13/2024 [facility] Medical Group Cardiology [address], [address], [place] [address] P:[phone] P:[phone] Echocardiographic Report Patient Name: JANETH JOSHUA D : 1950 Study Date: 07/13/2024 2:24:01 PM Gender: F Tech: Location: ED Ref Provider: FRAIHA MANTILLA Height(Cm): 165 BSA: 1.8 Weight(Kg): 70.8 Heart Rate: 76 BP: 128 / 80 Quality: Good Order Provider: FARIHA MANTILLA PROCEDURES: Echocardiographic Report: Transthoracic echocardiogram with complete 2D, M-Mode, and color Dopplerexamination. With Strain Analysis. INDICATIONS: CHF, Dilated CM, CAD, MR, AI, TR, ICD. MEASUREMENTS: 2D/MM Value Range Doppler ValueRange EF Mod BP 61 % [ 54 - 74 ] AV Mean PG 3mmHg EF Teich MM 48 % [ 54 - 74 ] AV Peak Norman 1.24m/s [ 1.00 - 1.70 ] Estimated EF 55 % AV Peak PG 6mmHg LVIDd 2D 4.35 cm [ 3.80 - 5.20 ] AV VTI 22.90cm LVIDd MM 4.09 cm [ 3.80 - 5.20 ] LVOT Peak Norman 0.81m/s [ 0.70 - 1.10 ] LVIDs 2D 3.33 cm [ 2.20 - 3.50 ] LVOT VTI 16.39cm LVIDs MM 3.11 cm [ 2.20 - 3.50 ] MV E Peak Norman 0.91m/s [ 0.60 - 1.30 ] LVPWd 2D 1.22 cm [ 0.60 - 0.90 ] MV A Peak Norman 0.26m/s [ 1.00 - 1.20 ] LVPWd MM 1.20 cm [ 0.60 - 0.90 ] MV Decel Time 133msec [ 104 - 258 ] IVSd 2D 0.95 cm [ 0.60 - 0.90 ] PV Peak Norman 0.61m/s [ 0.40 - 0.80 ] IVSd MM 1.36 cm [ 0.60 - 0.90 ] TR Peak Norman 2.75m/s [ 1.00 - 2.80 ] LA Dimension MM 4.57 cm [ 2.70 - 3.80 ] TR Peak PG 30mmHg AoR Diam MM 3.70 cm [ 2.70 - 3.70 ] RVSP 40.00mmHg [ 10.00 - 36.00 ] LA Volume Index 39 cc/m2 [ 16 - 34 ] Lateral E` 0.10m/s [ 0.10 - 0.15 ] E/E` 10 2D/MM Value Range Doppler ValueRange - FINDINGS: Interpretation Site: Exam was interpreted at [facility] ER. Left Ventricle: Normal left ventricular systolic function. No focal wall motionabnormalities. Moderate concentric left ventricular hypertrophy. Mild enlargement of leftventricle cavity. Diastolic dysfunction is present. Ejection fraction is measured at 61 %.Ejection Fraction is visually estimated to be 55 %. Global Longitudinal Strain is-12 %. GLS is abnormal. Right Ventricle: Normal right ventricular size. Normal right ventricular systolic function.Linear artifact in right ventricle suggestive of catheter(s), pacemaker lead(s),or ICD lead(s). Left Atrium: There is severe enlargement of left atrium. Right Atrium: There is severe enlargement of right atrium. Linear artifact in rightatrium suggestive of catheter(s), pacemaker lead(s), or ICD lead(s). Atrial Septum: Normal atrial septum. Mitral Valve: Normal appearance of the mitral valve. Mild to moderate mitral valveregurgitation. There is no hemodynamically significant mitral stenosis by Doppler. Aortic Valve: No evidence of hemodynamically significant aortic stenosis by Doppler.Aortic cusps appear mildly sclerotic. Trileaflet aortic valve. Mild to moderate aorticvalve regurgitation. Tricuspid Valve: Normal appearance of the tricuspid valve. Mild pulmonary hypertensionbased on right ventricular systolic pressure. Estimated peak RVSP is 40-45 mmHg. Severetricuspid regurgitation. Pulmonic Valve: Normal appearance of the pulmonic valve. No pulmonic stenosis. Mildpulmonic regurgitation. Pericardium: Normal pericardium with no significant pericardial effusion. Aorta: There is mild atherosclerosis in the aortic root. IVC: Dilated IVC with respiratory collapse consistent with elevated rightatrial pressure (10-15 mmHg). CONCLUSIONS: Normal left ventricular systolic function. No focal wall motionabnormalities. Moderate concentric left ventricular hypertrophy. Mild enlargement of leftventricle cavity. Diastolic dysfunction is present. Ejection fraction is measured at 61 %.Ejection Fraction is visually estimated to be 55 %. Global Longitudinal Strain is-12 %. GLS is abnormal. There is severe enlargement of left atrium. There is severe enlargement of right atrium. Linear artifact in rightatrium suggestive of catheter(s), pacemaker lead(s), or ICD lead(s). Mild to moderate mitral valve regurgitation. Aortic cusps appear mildly sclerotic. Mild to moderate aortic valveregurgitation. Mild pulmonary hypertension based on right ventricular systolic pressure.Estimated peak RVSP is 40-45 mmHg. Severe tricuspid regurgitation. Mild pulmonic regurgitation. Normal sinus rhythm. Electronically Signed By: Fariha Mantilla MD 07/13/2024 4:02:44 PM CDT Fariha Mantilla MD CV ECHO PROCEDURES Final Result * POCT lipid panel (06/20/2024 10:59 AM CDT) [facility] Cholesterol, POC 120 mg/dL HDL, POC 61 mg/dL Triglycerides, POC 61 mg/dL LDL Cholesterol POC 47 mg/dL Chol/HDL Ratio, POC 2.0 Non-HDL Cholesterol, POC 59 mg/dL Cholesterol Total, POC 120 mg/dL Capillary blood 06/20/2024 1 0:59 AM CDT Fariha Mantilla MD POINT OF CARE TEST ORDERA BLES Final Result * Hepatitis C antibody Blood (05/25/2023 1:25 PM CDT) [facility] Hep C Ab Non Reactive Non Reactive [facility] - 01 Comment: HCV antibody alone does not differentiate between previously resolved infection and active infection. Equivocal and Reactive HCV antibody results should be followed up with an HCV RNA test to support the diagnosis of active HCV infection. Blood 05/25/2023 1:25 PM CDT 05/25/2023 Narrative [facility] - 05/26/2023 8:19 AM CDT Performed at: - [address] [id number] Commercial Roofer: Arsalan Chance PhD, Phone: [phone] Rosaura Boss MD LAB MICROBIOLOGY - GEN ERAL ORDERABLES Final Result [facility] - 01 from Last 3 Months or Most Recently Relevant to Health Maintenance Insurance MEDICARE MEDICARE [facility] MEDICARE [facility] FEDERAL MEDICARE Advance Directives For more information, please contact: [phone] * Full Code (Latest Code Status on File) Date Activated Date Inactivated Comments 02/27/2020 11:12 AM 02/27/2020 7:31 PM Care Teams Automatic Silk Screen Printer Relationship Specialty Start Date End Date Yifan Lauren MD PCP - General Family Medicine 06/15/24 Jackson Reyes MD Consulting Physician Electrophysiology 02/10/23 Guillermina Augustin MD Consulting Physician Neurology 02/10/23 Fariha Mantilla MD [address] [facility] [address] [place] [address] Consulting Physician Cardiology 06/15/24 Kimberly Hanks MD [address] [place] [address] Referring Physician Dermatology 06/15/24
--- OUTSIDE RECORDS SUMMARY | 2024-07-24 02:50 | XMS_ITS ---
Author Organization [facility] [place] ([address]) Address [address] [address] Care Team Providers Care Supervisor Stage Carpentry Name Role Phone Yifan Lauren Primary Care Provider Beth vailable Dr. Timi Rivera [facility] [phone] REASON FOR VISIT Cornelius HERNANDEZ Approved 02/23/2024-05/23/2025 Social History Sex Assigned At : Social History Observation Description Sex Assigned At Female Encounters Encounter Location Date Provider Diagnosis [address] [address] 05/23/2024 Timi Rivera Plan Of Treatment Next Appt Details Provider Name:Vashti alvarado, 09/21/2024 02:00:00 PM, [address] [facility], [address], [place], [address], Progress Notes * ANITAWisam PICHARDOjocelinDOB: [birth year] (74 yo F)Acc No.[id number]:05/23/2024 Patient: Janeth WINSLOW :1950 A ge:74 Y S ex:Female Address:[address], [place], [address] * true * Date: Generated for Printi ng/Faxing/eTransmitting on: 0 07/24/2024 02:50 AM CDT
--- OUTSIDE RECORDS SUMMARY | 2024-07-24 02:50 | XMS_ITS ---
Author Organization [facility] [address] Address [address] [place] [address] Care Team Providers Care Record Clerk Name Role Phone Jackson Reyes MD Unavailable [phone] Guillermina Augustin MD Unavailable [phone] Yifan Lauren MD Primary Care Provider Adolph Mantilla MD Unavailable Kimberly Hanks MD Unavailable [phone] Active Problems Problem Noted Date Diagnosed Date [...] of nose - follows with dermatology - [facility] - has skin lesion over left [...] risk Assessment & Plan (02/10/2023 6:45 PM TISSUE SPECIALIST): Discussed the recommendation for mammogram screening through least age 75 or 80. Reviewed the [place] screening has been shown to help change [...] future Assessment & Plan (02/10/2023 6:43 PM TISSUE SPECIALIST): Discussed risks and benefits associated with screening [...] ICD implanted 02/[address] Reyes at [place] - Continues on Metoprolol 125 mg BID [...] prevention Assessment & Plan (02/10/2023 6:44 PM TISSUE SPECIALIST): History of permanent AFib status post ablation [...] now Assessment & Plan (02/10/2023 6:58 PM TISSUE SPECIALIST): Chronic. Compensated. Continue care per Cardiology and electrophysiology Biventricular automatic impl antable cardioverter defibrillator in situ 03/04/2020 Assessment & Plan (06/18/2024 4:25 PM CDT): Continue medication and care per electrophysiology Assessment & Plan (02/10/2023 6:42 PM TISSUE SPECIALIST): Continue medication and care per electrophysiology Coronary artery disease invo lving [place] coronary artery of [place] heart without angina pectoris 01/08/2020 Assessment & Plan (10/29/2023 3:18 PM CDT): Chronic. Denies chest pain. Continue risk factor modification with atorvastatin and Eliquis. Given patient is on full therapeutic anticoagulation okay to defer use of aspirin Assessment & Plan (02/10/2023 6:42 PM TISSUE SPECIALIST): Chronic. Continue risk factor modification for Cardiology. [...] lifestyle Assessment & Plan (02/10/2023 6:41 PM TISSUE SPECIALIST): Chronic. Poorly controlled in office. Patient does [...] previously Assessment & Plan (02/10/2023 6:40 PM TISSUE SPECIALIST): Chronic. Follows with Neurology. On Nurtec every [...] refilled Assessment & Plan (02/10/2023 6:44 PM TISSUE SPECIALIST): Patient has a degree of anxiety over [...] with Cardiology - Dr. 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 Compensated. Continue metoprolol. Monitor Assessment & Plan (02/10/2023 6:39 PM TISSUE SPECIALIST): Chronic. Compensated. Continue medication and care per [...] recommended Assessment & Plan (02/10/2023 6:39 PM TISSUE SPECIALIST): Chronic. For atrial fibrillation. Bleeding precautions recommended. [...] Continue. Assessment & Plan (02/10/2023 6:40 PM TISSUE SPECIALIST): Chronic. Tolerates medication. 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 Continue risk factor modification. She is on NOAC Current Treatment and Therapy Plans No current plan information found. Past Treatment and Therapy Plans No past plan information found. Lifetime Dose Tracking * Chemical Lifetime Dose Automatic Entry Manual Entr y Air kerma at the reference point (Ka,r) 415.9 mGy 0 mGy 415.9 mGy Resolved Problems Problem Noted Date Diagnosed Date [...] modification Assessment & Plan (02/10/2023 6:43 PM TISSUE SPECIALIST): Chronic. Continue medication and care per Cardiology. [...]
--- OUTSIDE RECORDS SUMMARY | 2024-07-24 02:50 | XMS_ITS | Encounter Summary ---
Author Organization [facility] Healthcare Address [address] [place] [address] Care Team Providers Care Compensation And Benefits Advisor Name Role Phone Jackson Reyes MD Unavailable [phone] Guillermina Augustin MD Unavailable [phone] Yifan Lauren MD Primary Care Provider Adolph Mantilla MD Unavailable [phone] Kimbrely Hanks MD Unavailable [phone] Encounter Details Date Type Department Care Team (Late st Contact Info) Description 07/14/2024 Results Follow-Up [facility] Medical Group Cardiology at [address] [place] [address] Adolph Mantilla MD [address] [address] Social History Tobacco Use Types Packs/Day Years Used Date Smoking Tobacco: Never Smokeless Tobacco: Never Alcohol Use Standard Drinks/Week Comments No 0 [...] on file 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 Gender Identity Not on file Sexual Orientation Not on file documented as of this encounter Plan of Treatment Not on file documented as of this encounter Visit Diagnoses Not on filedocumented in this encounter Care Teams Compensation And Benefits Advisor Relationship Specialty Start Date End Date Yifan Lauren MD PCP - General Family Medicine 06/15/24 Jackson Reyes MD Consulting Physician Electrophysiology 02/10/23 Guillermina Augustin MD Consulting Physician Neurology 02/10/23 Adolph Mantilla MD [address] [facility] [address] [place] [address] Consulting Physician Cardiology 06/15/24 Kimberly Hanks MD [address] [place] [address] Referring Physician Dermatology 06/15/24 documented as of this encounter
--- OUTSIDE RECORDS SUMMARY | 2024-07-24 02:50 | XMS_ITS | Patient Health Record ---
Author Organization [facility] [employer] [place] ([address]) Address [address] [place] [address] Care Team Providers Care Certified Genetic Counselor Name Role Phone Yifan Lauren Primary Care Provider Beth Dr. Timi Head Unavailable [phone] [facility], Provider Unavailable Unavailab Vashti Rodrigez Unavailable [phone] Allergies Allergen (clinical drug ingredient) Drug/Non Drug Allergy documented on EMR Reaction Allergy Type Onset Date Status EMGALITY PREFILLED P EN (uncoded) Unknown Allergy Active erythromycin Erythromycin vomiting Drug Allergy A ctive penicillin G Penicillin G Sodium rash Drug Allergy Active atogepant Qulipta Unknown Drug Allergy Active valsartan Valsartan dizziness Drug Allergy Active codeine Codeine vomiting Drug Allergy Active losartan Losartan dizziness Drug Allergy Active Reason For Referral No Information Medications Medication SIG (Take, Route, Frequency, Duration) Notes Start Date End Date Status Ubrelvy 100 MG 1 tablet Orally twice a day for 30 days As needed for migraine 05/18/2024 Active Metoprolol Tartrate 25 MG 1 tablet with food Orally Twice a day Active Metoprolol Tartrate 100 MG 1 tablet with food Orally Twice a day Active Metoprolol Succinate ER 100 MG 1 tab(s) orally twice a day Not-Taking Eliquis 5 MG as directed orally 2 times a day Active Nurtec 75 MG 0.5 tablet Orally on ce daily for 30 days 07/05/2024 Active amLODIPine Besylate 5 MG 1 tab(s) orally once a day Active Atorvastatin Calcium 10 MG 1 tab(s) orally once a day Active LORazepam 0.5 MG 1 tab(s) orally ever y 8 hours Active Olmesartan Medoxomil 20 MG 1 tab(s) orally once a day Active Social History Sex Assigned At : Social History Observation Description Sex Assigned At Female Section Notes: No tobacco, EtOH No tobacco, EtOH No tobacco, EtOH No tobacco, EtOH No tobacco, EtOH Problems Problem Type SNOMED Code ICD Code Onset Dates Problem Status W/U Status Risk Notes Problem Chronic migraine without aura, non-refractor y (disorder) (151738802412 100) Migraine without aura, not intractable, without status migrainosus (G43.009) Active confirmed Problem Migraine with aura, not intractable, without status migrainosus (G43.109) Active confirmed Problem Chronic migraine without aura, non-intractab le (052552626365 100) Chronic migraine without aura, not intractable, without status migrainosus (G43.709) Active confirmed Vital Signs Respiratory Rate 17 /min 05/18/2024 Oximetry 97 % 05/18/2024 Blood pressure diastolic 92 mm Hg 05/18/2024 Height 61 in 05/18/2024 Blood pressure systolic 151 mm Hg 05/18/2024 Weight 153.4 lbs 05/18/2024 BMI 28.98 kg/m2 05/18/2024 Encounters Encounter Location Date Provider Diagnosis [address] [address] 08/28/2023 Provider [facility] [address] [employer] [address] [address] 11/03/2023 Timi Rivera Chronic migraine without aura, not intractable, without status migrainosus G43.709 [address] [place] [address] 02/03/2024 Vashti Graham Chronic migraine without aura, not intractable, without status migrainosus G43.[address] [employer] [address] [place] [address] 05/18/2024 Vashti Graham Chronic migraine without aura, not intractable, without status migrainosus G43.[address] [address] 10/21/2023 Timi Rivera [facility] [address] [place] [address] [address] [place] [address] 02/23/2024 Vashti Graham [facility] [address] [place] [address] [address] [place] [address] 05/02/2024 [facility] [address] [place] [address] 05/23/2024 Timi Rivera [facility] [address] [place] [address] 07/05/2024 Vashti Graham Chronic migraine without aura, not intractable, without status migrainosus G43.709 Assessments Encounter Date Diagnosis (ICD Code) Assessment Notes Treatment Notes Treatment Clinical Notes Section Notes 11/03/2023 Chronic migraine without aura, not intractable, without status migrainosus (ICD-10 - G43.709) -Abortive treatment plan: Can take extra 1/2 pill prn for migraine. -Preventive treatment plan: Nurtec 75 mg 1/2 pill daily.-Educated the patient on migraine lifestyle recommendations. I recommended the following measures: avoid known triggers of migraine, drink > 100 fluid ounces of non-caffeinated fluid daily, limit caffeine to 2 servings/day, sleep 7-8 hours/night and address any sleep concerns with us and report symptoms of snoring or fatigue; healthy management of stress; avoid treating headaches more than 2 days/week with abortive medication unless approved in treatment plan; can take Riboflavin 400 mg and Magnesium 500 mg daily as supplements; keep scheduled follow-up appointments 02/03/2024 Chronic migraine without aura, not intractable, without status migrainosus (ICD-10 - G43.709) -Abortive treatment plan: Extra Nurtec. Gave samples of Ubrelvy.-Prevent marilou treatment plan: Continue Nurtec.-Educated the patient on migraine lifestyle recommendations. I recommended the following measures: avoid known triggers of migraine, drink > 100 fluid ounces of non-caffeinated fluid daily, limit caffeine to 2 servings/day, sleep 7-8 hours/night and address any sleep concerns with us and report symptoms of snoring or fatigue; healthy management of stress; avoid treating headaches more than 2 days/week with abortive medication unless approved in treatment plan; can take Riboflavin 400 mg and Magnesium 500 mg daily as supplements; keep scheduled follow-up appointments 05/18/2024 Chronic migraine without aura, not intractable, without status migrainosus (ICD-10 - G43.709) -Abortive treatment plan: Start Ubrelvy 100 mg. Gave samples of Nurtec and Ubrelvy.-Prevent marilou treatment plan: Continue Nurtec 1/2 tablet daily. -Educated the patient on migraine lifestyle recommendations. I recommended the following measures: avoid known triggers of migraine, drink > 100 fluid ounces of non-caffeinated fluid daily, limit caffeine to 2 servings/day, sleep 7-8 hours/night and address any sleep concerns with us and report symptoms of snoring or fatigue; healthy management of stress; avoid treating headaches more than 2 days/week with abortive medication unless approved in treatment plan; can take Riboflavin 400 mg and Magnesium 500 mg daily as supplements; keep scheduled follow-up appointments Given medication sensitivity and previous failed medications, I recommended treatment with Botox, but patient was adamantly against this treatment. She wants to continue Nurtec. 07/05/2024 Chronic migraine without aura, not intractable, without status migrainosus (ICD-10 - G43.709) 10/21/2023 Given medication sensitivity and previous failed medications, I recommended treatment with Botox, but patient was adamantly against this treatment. She wants to continue Nurtec. Plan Of Treatment Next Appt Details Provider Name:Vashti alvarado, 09/21/2024 02:00:00 PM, [address] [facility], [address], [place], [address], Insurance Providers Payer Name Payer Address Payer Phone Subscriber Number Group Number Insured Name Patient Relationship to Insured Coverage Start Date Coverage End Date [employer] (Medicare) Attention Claims [address] [place] [address] [id number] TrinhjayashreeJaneth olsen Self - patient is the insured 4 [facility] [address] [place] [address] [id number] Trinhnatasha Janeth ross Self - patient is the insured 6 Medical (General) History Surgical History Surgery Date(Month/Year) Cardiac Ablation
--- OUTSIDE RECORDS SUMMARY | 2024-07-24 02:50 | XMS_ITS | Continuity of Care Document ---
Author Organization [facility] [place] [address] [place] [address] Dr [address] [place] [phone] Phone Care Team Providers Care Rail Setter Name Role Phone Trevon Hendrickson OD Unavailable Unavailable Allergies, Adverse Reactions, Alerts Substance Reaction Status Criticality No Known allergies Medications Medication Instructions Dosage Effective Dates (start - stop) Status Comments Hydrochlorothiazide 25 mg Tab take 1 tablet (25MG) by ORAL route every day 25 MG - Active Atenolol 50 mg Tab take 1 tablet (50MG) by ORAL route every day 50 MG - Active FOLIC ACID (unknown strength) Not Available - Active Estradiol 1 mg Tab take 1 tablet (1MG) by ORAL route every day 1 MG - Active DEPO-PROVERA (unknown strength) inject 1 milliliter (400MG) by INTRAMUSCULAR route every month Not Available - Active Procedures Procedure Date Post-op Follow-up Visit Post-op Follow-up Visit Post-op Follow-up Visit Remove Cataract, Insert Lens Limbal Relaxing Incision Presbyopia Correcting IOL IOLMaster-Professional Post-op Follow-up Visit Post-op Follow-up Visit Remove Cataract, Insert Lens Limbal Relaxing Incision Presbyopia Correcting IOL Office/outpatient Visit, New Fundus Photography W/ Report IOLMaster Corneal Topography Advance Directives Directive Yes / No Effective Date File Name No Information Encounters Encounter Description Practice Location Reason(s) For Visit Diagnoses Date Provider Providers [facility]ied on [facility] [employer] [facility], [address] [place] [address] [address], [place], [place], [id number], tel:[phone] SEC Nir Macias No Information 1 Madhavi Lester. [address] [facility], [address], [id number], . tel:[phone] Referring Provider: Hansa Krishnan OD, [address] [facility], [place], [address]. tel:[phone] [facility], [address] [place] [address] [address], [place], [place], [id number], [place] tel:[phone] SEC Nir Ortegah No Information 1 Madhavi Lester. [address] [facility], [address], [id number], [place]. tel:[phone] Referring Provider: Hansa Krishnan OD, [address] [facility], [place], [address]. tel:[phone] [facility] [employer] [facility], [address] [place] [address] [address], [place], [place], [id number], [place] tel:[phone] SEC Nir Ortegah No Information 1 Madhavi Lester. [address] [facility], [facility] [address], [place], [id number], [place]. tel:[phone] Referring Provider: Hansa Krishnan OD, [address] [facility], [place], [address]. tel:[phone] [facility], [address], [place], [place], [id number], [place] tel:[phone] [facility] No Information 1 Dennis León. [address] [facility], [address], [place], [place], [id number], [place]. tel:[phone] Referring Provider: Hansa Krishnan OD, [address] [facility], [place], [address]. tel:[phone] [facility], [address], [place], [place], [address], [place] tel:[phone] SEC Nir N Lindbergh No Information 1 Dennis León. [address] [facility], [address], [place], [place], [address], [place]. tel:[phone] Referring Provider: Hansa Krishnan OD, [address] [facility], [place], [address]. tel:[phone] [facility], [address], [place], [place], [address], [place] tel:[phone] SEC Nir N Lindbergh No Information 1 Madhavi Lester. [address] [facility], [address], [place], [place], [address], [place]. tel:[phone] Referring Provider: Hansa Krishnan OD, [address] [facility], [place], [address]. tel:[phone] [facility], [address], [place], [place], [address], [place] tel:[phone] SEC Oktaha N Lindbergh No Information 1 Hendricksonrick Lester. [address] [facility], [address], [place], [place], [id number], . tel:[phone] Referring Provider: Hansa Krishnan OD, [address] [facility], [place], [address]. tel:[phone] [facility], [id number] [place] [address] [address], [place], [place], [address], tel:[phone] [facility] [place] No Information 7 [id number] [place] [address] [facility], [address], [place], [place], [address], [place]. tel:[phone] Referring Provider: Hansa Krishnan OD, [address] [facility], [place], [address]. tel:[phone] Office/outpa tient Visit, [facility], [address] [place] [address] [address], [place], [place], [id number], tel:[phone] SEC Oktaha N [facility] POST SUBCAP SENILE CATARPAVING STONE DEGENERATANTERIO R SYNECHIAE [phone] Dnenis León. [address] [place] [address] [facility], [address], [place], [place], [address], [place]. tel:[phone] Referring Provider: Hansa Krishnan OD, [address] [facility], [place], [address]. tel:[phone] Family History Family Member Type Diagnosis Age At Onset Father Problem (finding) diabetes melli tus in first degree relative Grandfather (m) Problem (finding) glaucoma Grandfather (p) Problem (finding) glaucoma Payers Payer name Insurance type Covered libertarian ID Authoriza tion(s) No Information Social History Type Description Quantity Date Captured Comments Sex Female Smoking Status No Information Chief Complaint And Reason For Visit No Information Reason For Referral Reason For Referral No Information History Of Present Illness Encounter Date Complaint History Of Prese nt Illness No Information Functional Status Date Functional Assessmen t No Information Instructions Date Instruction Additional Infor yaron PAVING STONE DEGENER AT, OU - vision not affected - will continue to monitor. - Discussed diagnosis in detail with patient. Will continue to observe condition and or symptoms. 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 Pt's sister has Fuchs dyst. - Surgically fix at time of surgery.Pt understands treatment DSAEK if needed after CE. Not likely Related to ANTERIOR SYNECHIAE - Pt wants CE OS 1st. Related to Cataract, PSC Cataract, PSC, OU- H yperopia/ Astigmatism OU. - Discussed cataract diagnosis with the patient. Discussed and reviewed treatment options for cataracts. Risks and benefits of surgical procedure were explained and understood. Risks and benefits of surgical treatment were discussed and understood. Patient elects surgical treatment. Pt understands at the time of surgery OD- pupil will be surgically corrected. Pt considering Premium IOL- Crystalens AO recommended- Pt may want LRI at time of surgery. Related to Cataract, PSC Assessments Type Assessment Date No Information Patient Care Teams Name Effective Dates (start - stop) Status Members No Information
--- OUTSIDE RECORDS SUMMARY | 2024-07-24 02:50 | XMS_ITS | Referral Summary ---
Author Organization [facility] [place] [address] Address [address] [place] [address] Care Team Providers Care Transition Assistant Name Role Phone Jackson Reyes MD Unavailable [phone] Guillermina Augustin MD Unavailable [phone] Yifan Lauren MD Primary Care Provider Fariha Mantilla MD Unavailable [phone] Kimberly Hanks MD Unavailable [phone] Encounters Date Type Department Care Team Description 07/14/2024 Results Follow-Up [facility] Cardiology at [address] [phone] Fariha Mantilla MD 07/13/2024 2:30 PM CDT Ancillary Procedure [facility] Cardiology at [address] [place] [phone] Chronic combined systolic and diastolic CHF (congestive heart failure) (HCC); Dilated cardiomyopathy (HCC); 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; Nonrheumatic mitral valve regurgitation; Nonrheumatic aortic valve insufficiency; Nonrheumatic tricuspid valve regurgitation; Biventricular automatic implantable cardioverter defibrillator in situ 06/20/2024 11:00 AM CDT Office Visit [facility] Cardiology at [address] [place] [phone] Fariha Mantilla MD Chronic anticoagulation (Primary Dx); Nonrheumatic mitral valve regurgitation; Nonrheumatic tricuspid valve regurgitation; Chronic combined systolic and diastolic CHF (congestive heart failure) (HCC); 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; Dilated cardiomyopathy (HCC); Nonrheumatic aortic valve insufficiency 06/15/2024 10:15 AM CDT Office Visit [facility] Primary Care at [address] [phone] Yifan Lauren MD Colonoscopy refused [...] tricuspid valve regurgitation from Last 3 Months Allergies Active Allergy Reactions Criticality Noted Date [...] 2 (two) times a day 60 tablet 11 04/24/19 25 Active metoprolol tartrate (LOPRESSOR) 25 [...] of nose - follows with dermatology - [facility] - has skin lesion over left [...] risk Assessment & Plan (02/10/2023 6:45 PM BOATBUILDER SUPERVISOR): Discussed the recommendation for mammogram screening through least age 75 or 80. Reviewed the [place] screening has been shown to help change [...] future Assessment & Plan (02/10/2023 6:43 PM BOATBUILDER SUPERVISOR): Discussed risks and benefits associated with screening [...] ICD implanted 02/[address] Reyes at [facility] - Continues on Metoprolol 125 mg BID [...] prevention Assessment & Plan (02/10/2023 6:44 PM BOATBUILDER SUPERVISOR): History of permanent AFib status post ablation [...] now Assessment & Plan (02/10/2023 6:58 PM BOATBUILDER SUPERVISOR): Chronic. Compensated. Continue care per Cardiology and electrophysiology Biventricular automatic impl antable cardioverter defibrillator in situ 03/04/2020 Assessment & Plan (06/18/2024 4:25 PM CDT): Continue medication and care per electrophysiology Assessment & Plan (02/10/2023 6:42 PM BOATBUILDER SUPERVISOR): Continue medication and care per electrophysiology Coronary artery disease invo lving north fork coronary artery of north fork heart without angina pectoris 01/08/2020 Assessment & Plan (10/29/2023 3:18 PM CDT): Chronic. Denies chest pain. Continue risk factor modification with atorvastatin and Eliquis. Given patient is on full therapeutic anticoagulation okay to defer use of aspirin Assessment & Plan (02/10/2023 6:42 PM BOATBUILDER SUPERVISOR): Chronic. Continue risk factor modification for Cardiology. [...] lifestyle Assessment & Plan (02/10/2023 6:41 PM BOATBUILDER SUPERVISOR): Chronic. Poorly controlled in office. Patient does [...] previously Assessment & Plan (02/10/2023 6:40 PM BOATBUILDER SUPERVISOR): Chronic. Follows with Neurology. On Nurtec every [...] refilled Assessment & Plan (02/10/2023 6:44 PM BOATBUILDER SUPERVISOR): Patient has a degree of anxiety over [...] with Cardiology - Dr. 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 Compensated. Continue metoprolol. Monitor Assessment & Plan (02/10/2023 6:39 PM BOATBUILDER SUPERVISOR): Chronic. Compensated. Continue medication and care per [...] recommended Assessment & Plan (02/10/2023 6:39 PM BOATBUILDER SUPERVISOR): Chronic. For atrial fibrillation. Bleeding precautions recommended. [...] Continue. Assessment & Plan (02/10/2023 6:40 PM BOATBUILDER SUPERVISOR): Chronic. Tolerates medication. Patient should be having [...] prevention Assessment & Plan (02/10/2023 6:40 PM BOATBUILDER SUPERVISOR): Patient has a history of an occult [...] modification Assessment & Plan (02/10/2023 6:43 PM BOATBUILDER SUPERVISOR): Chronic. Continue medication and care per Cardiology. Continue risk factor modification Persistent atrial fibrillation 02/25/2015 12/07/2022 Overview (05/15/2020): Assessment & Plan (11/28/2016 6:50 PM CDT): Has been controlled until recently. More problems w/ PAF now Benign hypertension 02/25/2015 10/15/19 Overview (06/18/2016): HTN (hypertension), benign Left bundle branch block (LBBB) 02/25/2015 10/14/2021 Overview (06/18/2016): LBBB (left bundle branch block) Immunizations Immunization Administration Dates Next Due Influenza, [...] (Arexvy) 12/04/2022 Tdap 10/06/2023,03/21/2013 ZOSTER Recombinant 01/13/2019,10/10/2018 Social History Tobacco Use Types Packs/Day Years [...] on file Legal Sex Female 3:51 AM BOATBUILDER SUPERVISOR Gender Identity Not on file Sexual Orientation Not on file Last Filed Vital Signs Vital Sign Reading Time Taken Comments Blood Pressure 128/80 06/20/2024 12:08 PM CDT Pulse 100 06/20/2024 11:02 AM CDT Temperature 36.8 C (98.2 F) 06/15/2024 10:20 AM CDT Respiratory Rate 24 02/25/2024 3:42 PM BOATBUILDER SUPERVISOR Oxygen Saturation 94% 06/20/2024 11:02 AM CDT Inhaled Oxygen Concentration - - Weight 70.8 kg (156 lb) 06/20/2024 11:02 AM CDT Height 165.1 cm (5' 5 ) 06/20/2024 11:02 AM CDT Body Mass Index 25.96 06/20/2024 11:02 AM CDT Plan of Treatment Not on file Medical Devices Implanted Type Area Supervisor Knitting Device Identifier Shelf Expiration Date Model / Serial / Lot [employer] [id number] System 6-12fr Mvp Venous Closure Vascade - [id number] Implanted:Qty: 1 on 05/28/2020 by Jackson Reyes MD at [facility] Collagen [employer] 03/20/2022 [id number] / / [id number] Medtronic Inc [id number] Cardiac [place] Hf 2 Chamber Df4 Inline Cnctr Is4 - [id number] - [id number] Implanted:Qty: 1 on 02/27/2020 by Jackson Reyes MD at [facility] ICD [employer] [id number] 06/09/2021 [id number] / [id number] / Description:CRTD generator VF 222 bpm Burst x1, 40J x6 VT Monitor 200 bpm Medtronic Cardiac Rhythm Mgmt [id number] Sprint Quattro Secure S 55cm Df-4 Tripolar Screw Defibrillator - [id number] - [id number] Implanted:Qty: 1 on 02/27/2020 by Jackson Reyes MD at [facility] Lead [employer] Inc 12/05/2021 [id number] / [id number] / Description:RV lead Med[employer] Inc [id number] Attain Performa Starfix 5.3fr 5.1fr 88cm Quadripolar Is4-Llll Latex Free - [id number] - [id number] Implanted:Qty: 1 on 02/27/2020 by Jackson Reyes MD at [facility] Lead [employer] Inc 06/17/2020 [id number] / [id number] / Description:LV/ CS lead Medtronic Cardiac Rhythm Mgmt 5076-45 Capsurefix Novus 6.2fr 2mm 45cm Bipolar Screw In Implantable - [id number] - [id number] Implanted:Qty: 1 on 02/27/2020 by Jackson Reyes MD at [facility] Lead [employer] 11/29/2021 [id number] / [id number] / Description:RA lead Procedures Procedure Name Priority Date/Time Associated Diagnosis Comments TRANSTHORACIC ECHO (TTE) COMPLETE W DOPPLER/CF WO CONTRAST Routine 07/13/2024 2:44 PM CDT Chronic combined systolic and diastolic CHF (congestive heart failure) (HCC) Dilated cardiomyopathy (HCC) 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 Nonrheumatic mitral valve regurgitation Nonrheumatic aortic valve insufficiency Nonrheumatic tricuspid valve regurgitation Biventricular automatic implantable cardioverter defibrillator in situ POCT LIPID PANEL Routine 06/20/2024 10:5 9 AM CDT 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 Left Ventricle: Normal left ventricular systolic function. [...] Procedure Note Fariha Mantilla MD - 07/13/2024 [facility] Cardiology [address], [address], [place] [address] P:[phone] P:[phone] Echocardiographic Report Patient Name: JANETH JOSHUA D [...] FINDINGS: Interpretation Site: Exam was interpreted at [facility]. Left Ventricle: Normal left ventricular systolic function. [...] POCT lipid panel (06/20/2024 10:59 AM CDT) [facility] Cholesterol, POC 120 mg/dL HDL, POC 61 mg/dL Triglycerides, POC 61 mg/dL LDL Cholesterol POC 47 mg/dL Chol/HDL Ratio, POC 2.0 Non-HDL Cholesterol, POC 59 mg/dL Cholesterol Total, POC 120 mg/dL Capillary blood 06/20/2024 1 0:59 AM CDT Fariha Mantilla MD POINT OF CARE TEST ORDERA BLES Final Result * Hepatitis C antibody Blood (05/25/2023 1:25 PM CDT) Hep C Ab Non Reactive Non Reactive [facility] - 01 Comment: HCV antibody alone does not differentiate between previously resolved infection and active infection. Equivocal and Reactive HCV antibody results should be followed up with an HCV RNA test to support the diagnosis of active HCV infection. Blood 05/25/2023 1:25 PM CDT 05/25/2023 Narrative [facility] - 05/26/2023 8:19 AM CDT Performed at: [address] [place] [id number] Audio Video Technician: Arsalan Chance PhD, Phone: [phone] Rosaura Boss MD LAB MICROBIOLOGY - GEN ERAL ORDERABLES Final Result [facility] - 01 from Last 3 Months or Most Recently Relevant to Health Maintenance Insurance MEDICARE [facility] Address: [id number] [place] [address] MEDICARE [facility] Address: [address] [place] [address] [facility] Address: [address] [address] [place] [address] [facility] Address: [address] [place] [address] MEDICARE Advance Directives For more information, please contact: [phone] * Full Code (Latest Code Status on File) Date Activated Date Inactivated Comments 02/27/2020 11:12 AM 02/27/2020 7:31 PM Care Teams Transition Assistant Relationship Specialty Start Date End Date Yifan Lauren MD PCP - General Family Medicine 06/15/24 Jackson Reyes MD Consulting Physician Electrophysiology 02/10/23 Guillermina Augustin MD Consulting Physician Neurology 02/10/23 Fariha Mantilla MD [address] [address] Consulting Physician Cardiology 06/15/24 Kimberly Hanks MD [phone] [place] [id number] Referring Physician Dermatology 06/15/24
--- OUTSIDE RECORDS SUMMARY | 2024-07-24 02:50 | XMS_ITS ---
Author Organization [employer] [facility] ([address]) Address [address] [place] [address] Care Team Providers Care Low Raw Sugar Cutter Name Role Phone Yifan Lauren Primary Care Provider Dr. Timi Alcazar Unavailable [phone] Vashti Graham Unavailable [phone] Allergies Allergen (clinical drug ingredient) Drug/Non Drug [...] Active losartan Losartan dizziness Drug Allergy Active REASON FOR VISIT Headache follow-up Medications Medication SIG (Take, Route, Frequency, Duration) Notes Start Date End Date Status Metoprolol Succinate ER 100 MG 1 tab(s) orally twice a day Not-Taking NURTEC ODT 75 MG 1/2 tab orally once *Please review for potential replacement for e-prescription and drug interaction check* Active Eliquis 5 MG as directed orally 2 times a day Active amLODIPine Besylate 5 MG 1 tab(s) orally once a day Active Atorvastatin Calcium 10 MG 1 tab(s) orally once a day Active Ubrelvy 100 MG 1 tablet Orally twice a day for 30 days As needed for migraine 05/18/2024 Active Metoprolol Tartrate 25 MG 1 tablet with food Orally Twice a day Active Metoprolol Tartrate 100 MG 1 tablet with food Orally Twice a day Active LORazepam 0.5 MG 1 tab(s) orally every 8 hours Active Olmesartan Medoxomil 20 MG 1 tab(s) orally once a day Active Social History Sex Assigned At : Social History Observation Description Sex Assigned At Female Section Notes: No tobacco, EtOH Vital Signs Blood pressure systolic 151 mm Hg 05/19/19 25 Blood pressure diastolic 92 mm Hg 025 Respiratory Rate 17 /min 05/18/2024 Height 61 in 05/18/2024 Weight 153.4 lbs 05/18/2024 BMI 28.98 kg/m2 05/18/2024 Oximetry 97 % 05/18/2024 Encounters Encounter Location Date Provider Diagnosis [facility] [address] [facility] [address] [place] [address] 05/18/2024 Vashti Graham Chronic migraine without aura, not intractable, without status migrainosus G43.709 Assessments Encounter Date Diagnosis (ICD Code) Assessment Notes Treatment Notes Treatment Clinical Notes Section Notes 05/18/2024 Chronic migraine without aura, not intractable, [...] wants to continue Nurtec. Plan Of Treatment Medication Medication Name Sig Start Date Stop Date Notes NURTEC ODT 75 MG 1/2 tab orally once *Please review for potential replacement for e-prescription and drug interaction check* Ubrelvy 100 MG 1 tablet Orally twic e a day for 30 days 05/18/2024 Treatment Notes Assessment Notes Chronic migraine without aur a, not intractable, without status migrainosus -Abortive treatment plan: Start Ubrelvy 100 mg. Gave samples of Nurtec and Ubrelvy.-Preventive treatment plan: Continue Nurtec 1/2 tablet daily. [...] daily as supplements; keep scheduled follow-up appointments Next Appt Details Follow Up: , Reason: Evaluat ion and Management Provider Name:Vashti alvarado, 09/21/2024 02:00:00 PM, [address] [facility], [place], [address], [address], Progress Notes * Wisam FIOREjocelinDOB: [birth year] (74 yo F)Acc No.[id number]:05/18/2024 Progress Notes Patient: Janeth WINSLOW Provider: Preston Graham APRN :1950 A ge:74 Y S ex:Female Date:05/18/2024 Address:[address] [place], [place] [id number] Pcp:Yifan Lauren Subjective: * Chief Complaints: * H eadache follow-up * HPI: * Introduction: I had the pleasure of seeing Kashif Fiore, who presented for follow-up for chronic migraine. * Initial History: INITIAL VISIT HISTORY: She is a 73 year old woman with a history of chronic migraine, cerebrovascular disease with h/o mild stroke (without residual), PAFib s/p cardiac ablation on anticoagulation, cardiomyopathy, s/p PPM/ICD. She was previously treated for migraine at [facility]. Headache History: -Headache Onset: Age 15 -Headache Description: Starts posteriorly, throbbing pain, sound sensitivity, minimal light sensitivity, can affect stomach. Has h/o aura. -Headache Triggers: Weather fronts (barometric pressure change), stress. -Headache Frequency: The patient is currently experiencing 20-25 -Headache days/month and 20-25 Migraine days/month. LAST VISIT HISTORY: Last visit was on 0 11/03/2023. She reports that she has been doing well since her last visit. She takes half a tablet of Nurtec every day. She takes a full tablet when she has a severe migraine. Her migraines have been less intense since taking Nurtec. Her insurance recently decreased her monthly quantity of Nurtec from 18 to 15. * Previous Impression & Plan: Notes Previous Diagnoses: 1. Chronic migraine without aura, not intractable, without status migrainosus - G43.709 (Primary) Previous Recommendations: 1. Abortive: Extra Nurtec. Gave samples of Ubrelvy. Preventive: Continue Nurtec. * Interval History: Notes Pharmacologic Treatment: Current abortive treatment: N urtec 1/2 tab PRN, Ubrelvy samples (effective) Previous abortive treatment: F ioricet (ineffective), triptan medications are contraindicated d/t cardiac hx Current preventive treatment: N urtec 1/2 tab daily, Metoprolol for cardiac Previous preventive treatment: E mgality (dizziness), Qulipta, Gabapentin - all ineffective and all had side effects Medication overuse: Not present Other modalities: Chiropractic, Physical Therapy, Acunpuncture, Biofeedback, Migraine devices Headache Frequency: Initial/baseline headache/migraine days/month: 30/12-16 Last visit headache/migraine days/month: 25-30/2-3 Current headache/migraine days/month: 16-20/4-5 Headache Scales: HIT-6: Current score: 60. Prior score: 56 Interval History: Last visit was on 1 04/04/2023. She reports that her migraines have been mostly controlled with Nurtec 1/2 tablet per day. She continues to have a mild headache more than half of the month but her severe migraines have been infrequent. Nurtec is effective as a rescue medication but takes 1-2 hours to work. Ubrelvy samples worked well for her. . * ROS: C ONSTITUTIONAL: Positive for P atient denies fevers, chills, sweats, unintended weight loss, loss of appetite, or chronic fatigue. E NT: Positive P atient denies ear fullness or pain or sinus pain. R ESPIRATORY: Positive for P atient denies shortness of breath or wheezing. O PHTHALMOLOGY: Positive for R eviewed and except as mentioned above in the HPI is negative. E NDOCRINOLOGY: Positive for P atient denies heat intolerance, cold intolerance, polyuria, elevated blood sugar, chronic fatigue. C ARDIOLOGY: Positive for P atient denies dizziness, palpitations, or chest pain. G ASTROENTEROLOGY: Positive for P atient denies diarrhea, melena, bloody stools, or abdominal pain. U ROLOGY: Positive for P atient denies urinary incontinence or urinary dysfunction. D ERMATOLOGY: Positive for P atient denies rash or hives. ? N EUROLOGY: Positive for R eviewed and except as mentioned above in the HPI is negative. H EMATOLOGY/LYMPH: Positive for P atient denies history of excessive bruising or bleeding diasthesis. M USCULOSKELETAL: Positive for P atient denies extremity joint pain or swelling. P SYCHOLOGY: Positive for R eviewed and except as discussed above in the HPI is otherwise negative. * Medical History: * Surgical History: C ardiac Ablation * Hospitalization/Major Diagno stic Procedure: N o Hospitalization History. * Family History: Positive for migraine. * Social History: No tobacco, EtOH. * Medications: T akingMetoprolol Tartrate 25 MG Tablet 1 tablet with food Orally Twice a day Metoprolol Tartrate 100 MG Tablet 1 tablet with food Orally Twice a day LORazepam 0.5 MG Tablet 1 tab(s) orally every 8 hours Olmesartan Medoxomil 20 MG Tablet 1 tab(s) orally once a day Atorvastatin Calcium 10 MG Tablet 1 tab(s) orally once a day Eliquis 5 MG Tablet as directed orally 2 times a day amLODIPine Besylate 5 MG Tablet 1 tab(s) orally once a day NURTEC ODT 75 MG TABLET, DISINTEGRATING 1/2 tab orally once , Notes to Pharmacist: *Please review for potential replacement for e-prescription and drug interaction check*Taking Metoprolol Tartrate 25 MG Tablet 1 tablet with food Orally Twice a day Taking Metoprolol Tartrate 100 MG Tablet 1 tablet with food Orally Twice a day Taking LORazepam 0.5 MG Tablet 1 tab(s) orally every 8 hours Taking Olmesartan Medoxomil 20 MG Tablet 1 tab(s) orally once a day Taking Atorvastatin Calcium 10 MG Tablet 1 tab(s) orally once a day Taking Eliquis 5 MG Tablet as directed orally 2 times a day Taking amLODIPine Besylate 5 MG Tablet 1 tab(s) orally once a day Taking NURTEC ODT 75 MG TABLET, DISINTEGRATING 1/2 tab orally once , Notes to Pharmacist: *Please review for potential replacement for e-prescription and drug interaction check*Not-Taking/PRNMetoprolol Succinate ER 100 MG Tablet Extended Release 24 Hour 1 tab(s) orally twice a day Medication List reviewed and reconciled with the patientNot-Taking/PRN Metoprolol Succinate ER 100 MG Tablet Extended Release 24 Hour 1 tab(s) orally twice a day Medication List reviewed and reconciled with the patient * Allergies: P enicillin G Sodium: rashCodeine: vomitingErythromycin: vomitingLosartan: dizzinessValsartan: dizzinessEMGALITY PREFILLED PENQuliptano[Allergies Verified] Objective: * Vitals: B P:151/92mm Hg, HR:109/min, RR:17/min, Pulse Oximetry:97%, Ht: 61 in, Wt: 153.4 lbs, BMI:28.98Index. * Examination: G eneral examination: General appearance: P leasant, well-developed, no distress.? HEENT: N o papilledema. Neurologic exam: A lert and oriented x 4. Fluent speech. CN II-XII intact. Motor 5/5 strength in all extremities. Reflexes 2+/2 and symmetric in all extremities. Bilateral flexor plantar responses. Sensory exam intact to light touch in all extremities. Gait normal. Genitalia: N ot performed. Assessment: * Assessment: 1. C hronic migraine without aura, not intractable, without status migrainosus - G43.709 (Primary) Given medication sensitivity and previous failed medications, I recommended treatment with Botox, but patient was adamantly against this treatment. She wants to continue Nurtec. Plan: * Treatment: * Procedure Codes: 9 6160 PT-FOCUSED HLTH RISK [id number] DOC MEDS VERIFIED W/PT OR DHM5302 Complex e/m visit add on * Follow Up: R jassi: Evaluation and Management * Billing Information: * Visit Code: 95166 Office Visit, Est Pt., Level 3. Modifiers: 25 * Procedure Codes: 41033 PT-FOCUSED HLTH RISK ASSMT. G8427 DOC MEDS VERIFIED W/PT OR RE. G2211 Complex e/m visit add on. * Electronically co-signed by Dr. Timi Rivera MD on 05/25/2024 at 09:53 AM CDT Sign off status: Completed true * Provider: Preston Graham APRN Date: 0 05/18/2024 Generated for Sloan nogueira/Uzair/Pee on: 0 07/24/2024 02:50 AM CDT History and Physical Notes * HPI (History of Present Illness) Category Sub-Category Detail Notes Category Notes *Introduction I had the pleasure of seeing Janeth Fiore, who presented for follow-up for chronic migraine *Initial History INITIAL VISIT HISTORY: She is a 73 year old woman with a history of chronic migraine, cerebrovascular disease with h/o mild stroke (without residual), PAFib s/p cardiac ablation on anticoagulation, cardiomyopathy, s/p PPM/ICD. She was previously treated for migraine at [facility]. Headache History: -Headache Onset: Age 15 -Headache Description: Starts posteriorly, throbbing pain, sound sensitivity, minimal light sensitivity, can affect stomach. Has h/o aura. -Headache Triggers: Weather fronts (barometric pressure change), stress. -Headache Frequency: The patient is currently experiencing 20-25 -Headache days/month and 20-25 Migraine days/month. LAST VISIT HISTORY: Last visit was on 11/03/2023. She reports that she has been doing well since her last visit. She takes half a tablet of Nurtec every day. She takes a full tablet when she has a severe migraine. Her migraines have been less intense since taking Nurtec. Her insurance recently decreased her monthly quantity of Nurtec from 18 to 15 *Previous Impression & Plan Notes Previous Diagnoses:1. Chroni c migraine without aura, not intractable, without status migrainosus - G43.709 (Primary)Previous Recommendations:1. Abortive: Extra Nurtec. Gave samples of Ubrelvy. Preventive: Continue Nurtec *Interval History Notes Pharmacologic Treatment: Cur rent abortive treatment: Nurtec 1/2 tab PRN, Ubrelvy samples (effective) Previous abortive treatment: Fioricet (ineffective), triptan medications are contraindicated d/t cardiac hx Current preventive treatment: Nurtec 1/2 tab daily, Metoprolol for cardiac Previous preventive treatment: Emgality (dizziness), Qulipta, Gabapentin - all ineffective and all had side effects Medication overuse: Not present Other modalities: Chiropractic, Physical Therapy, Acunpuncture, Biofeedback, Migraine devices Headache Frequency: Initial/baseline headache/migraine days/month: 13/03- Last visit headache/migraine days/month: -30/2-3 Current headache/migraine days/month: 16-20/4-5 Headache Scales: HIT-6: Current score: 60. Prior score: 56 Interval History: Last visit was on 02/03/2024. She reports that her migraines have been mostly controlled with Nurtec 1/2 tablet per day. She continues to have a mild headache more than half of the month but her severe migraines have been infrequent. Nurtec is effective as a rescue medication but takes 1-2 hours to work. Ubrelvy samples worked well for her. Examination Category Sub-Category Detail Notes Category Not es General examination HEENT: No papilledema General appearance: Pleasant, well-devel oped, no distress Neurologic exam: Alert and oriented x 4. Fluent speech. CN II-XII intact. Motor 5/5 strength in all extremities. Reflexes 2+/2 and symmetric in all extremities. Bilateral flexor plantar responses. Sensory exam intact to light touch in all extremities. Gait normal Genitalia: Not performed
[2024-07-24 02:55] VITALS: BP 187/103; PULSE 102; RESP 16; TEMP 36.6; O2SAT 98
--- OUTSIDE RECORDS SUMMARY | 2024-07-24 03:12 | XMS_ITS | Referral Summary ---
Author Organization [facility] [address] Address [address] [place] [address] Care Team Providers Care Export Freight Specialist Name Role Phone Jackson Reyes MD Unavailable [phone] Guillermina Augustin MD Unavailable [phone] Yifan Lauren MD Primary Care Provider Fariha Mantilla MD Unavailable [phone] Kimberly Hanks MD Unavailable [phone] Encounters Date Type Department Care Team Description 07/14/2024 Results Follow-Up [facility] Cardiology at [address] [phone] Fariha Mantilla MD 07/13/2024 2:30 PM CDT Ancillary Procedure [facility] Cardiology at [address] [place] [phone] Chronic combined systolic and diastolic CHF (congestive heart failure) (HCC); Dilated cardiomyopathy (HCC); Coronary artery disease involving standing rock coronary artery of standing rock heart without angina pectoris; Nonrheumatic mitral valve regurgitation; Nonrheumatic aortic valve insufficiency; Nonrheumatic tricuspid valve regurgitation; Biventricular automatic implantable cardioverter defibrillator in situ 06/20/2024 11:00 AM CDT Office Visit [facility] Cardiology at [address] [place] [phone] Fariha Mantilla MD Chronic anticoagulation (Primary Dx); Nonrheumatic mitral valve regurgitation; Nonrheumatic tricuspid valve regurgitation; Chronic combined systolic and diastolic CHF (congestive heart failure) (HCC); Coronary artery disease involving standing rock coronary artery of standing rock heart without angina pectoris; Dilated cardiomyopathy (HCC); Nonrheumatic aortic valve insufficiency 06/15/2024 10:15 AM CDT Office Visit [facility] Primary Care at [address] [address] Yifan Lauren MD Colonoscopy refused [...] of nose - follows with dermatology - [facility] - has skin lesion over left [...] risk Assessment & Plan (02/10/2023 6:45 PM LASERIST): Discussed the recommendation for mammogram screening through least age 75 or 80. Reviewed the [place] screening has been shown to help change [...] future Assessment & Plan (02/10/2023 6:43 PM LASERIST): Discussed risks and benefits associated with screening [...] ICD implanted 02/[address] Reyes at [place] - Continues on Metoprolol 125 mg BID [...] prevention Assessment & Plan (02/10/2023 6:44 PM LASERIST): History of permanent AFib status post ablation [...] now Assessment & Plan (02/10/2023 6:58 PM LASERIST): Chronic. Compensated. Continue care per Cardiology and electrophysiology Biventricular automatic impl antable cardioverter defibrillator in situ 03/04/2020 Assessment & Plan (06/18/2024 4:25 PM CDT): Continue medication and care per electrophysiology Assessment & Plan (02/10/2023 6:42 PM LASERIST): Continue medication and care per electrophysiology Coronary artery disease invo lving standing rock coronary artery of standing rock heart without angina pectoris 01/08/2020 Assessment & Plan (10/29/2023 3:18 PM CDT): Chronic. Denies chest pain. Continue risk factor modification with atorvastatin and Eliquis. Given patient is on full therapeutic anticoagulation okay to defer use of aspirin Assessment & Plan (02/10/2023 6:42 PM LASERIST): Chronic. Continue risk factor modification for Cardiology. [...] lifestyle Assessment & Plan (02/10/2023 6:41 PM LASERIST): Chronic. Poorly controlled in office. Patient does [...] previously Assessment & Plan (02/10/2023 6:40 PM LASERIST): Chronic. Follows with Neurology. On Nurtec every [...] refilled Assessment & Plan (02/10/2023 6:44 PM LASERIST): Patient has a degree of anxiety over [...] with Cardiology - Dr. Mantilla Has an practical nurse - She has a biventricular ICD in place Hx of complete heart block Assessment & Plan (10/29/2023 3:17 PM CDT): Chronic. Compensated. Continue metoprolol. Monitor Assessment & Plan (02/10/2023 6:39 PM LASERIST): Chronic. Compensated. Continue medication and care per [...] recommended Assessment & Plan (02/10/2023 6:39 PM LASERIST): Chronic. For atrial fibrillation. Bleeding precautions recommended. [...] Continue. Assessment & Plan (02/10/2023 6:40 PM LASERIST): Chronic. Tolerates medication. Patient should be having [...] prevention Assessment & Plan (02/10/2023 6:40 PM LASERIST): Patient has a history of an occult [...] modification Assessment & Plan (02/10/2023 6:43 PM LASERIST): Chronic. Continue medication and care per Cardiology. [...] on file Legal Sex Female 3:51 AM LASERIST Gender Identity Not on file Sexual Orientation Not on file Last Filed Vital Signs Vital Sign Reading Time Taken Comments Blood Pressure 128/80 06/20/2024 12:08 PM CDT Pulse 100 06/20/2024 11:02 AM CDT Temperature 36.8 C (98.2 F) 06/15/2024 10:20 AM CDT Respiratory Rate 24 02/25/2024 3:42 PM LASERIST Oxygen Saturation 94% 06/20/2024 11:02 AM CDT Inhaled Oxygen Concentration - - Weight 70.8 kg (156 lb) 06/20/2024 11:02 AM CDT Height 165.1 cm (5' 5 ) 06/20/2024 11:02 AM CDT Body Mass Index 25.96 06/20/2024 11:02 AM CDT Plan of Treatment Not on file Medical Devices Implanted Type Area Wash Worker Device Identifier Shelf Expiration Date Model / Serial / Lot [employer] [id number] System 6-12fr Mvp Venous Closure Vascade - [id number] Implanted:Qty: 1 on 05/28/2020 by Jackson Reyes MD at [facility] Collagen [employer] 03/20/2022 [id number] / / [id number] Med[employer]onic Inc [id number] Cardiac [place] Hf 2 Chamber Df4 Inline Cnctr Is4 - [id number] - [id number] Implanted:Qty: 1 on 02/27/2020 by Jackson Reyes MD at [facility] ICD [employer] [id number] 06/09/2021 [id number] / [id number] / Description:CRTD generator VF 222 bpm Burst x1, 40J x6 VT Monitor 200 bpm Medtronic Cardiac Rhythm Mgmt [id number] Sprint Quattro Secure S 55cm Df-4 Tripolar Screw Defibrillator - [id number] - [id number] Implanted:Qty: 1 on 02/27/2020 by Jackson Reyes MD at [facility] Lead [employer] Inc 12/05/2021 [id number] / [id number] / Description:RV lead Med[employer] Inc [id number] Attain Performa Starfix 5.3fr 5.1fr 88cm Quadripolar Is4-Llll Latex Free - [id number] - [id number] Implanted:Qty: 1 on 02/27/2020 by Jackson Reyes MD at [facility] Lead [employer] Inc 06/17/2020 [id number] / [id number] / Description:LV/ CS lead Medtronic Cardiac Rhythm Mgmt 5076-45 Capsurefix Novus 6.2fr 2mm 45cm Bipolar Screw In Implantable - [id number] - [id number] Implanted:Qty: 1 on 02/27/2020 by Jackson Reyes MD at [facility] Lead [employer] 11/29/2021 5076-45 / [id number] / Description:RA lead Procedures Procedure Name Priority Date/Time Associated Diagnosis Comments TRANSTHORACIC ECHO (TTE) COMPLETE W DOPPLER/CF WO CONTRAST Routine 07/13/2024 2:44 PM CDT Chronic combined systolic and diastolic CHF (congestive heart failure) (HCC) Dilated cardiomyopathy (HCC) Coronary artery disease involving standing rock coronary artery of standing rock heart without angina pectoris Nonrheumatic mitral valve regurgitation Nonrheumatic aortic valve insufficiency Nonrheumatic tricuspid valve regurgitation Biventricular automatic implantable cardioverter defibrillator in situ POCT LIPID PANEL Routine 06/20/2024 10:5 9 AM CDT Coronary artery disease involving standing rock coronary artery of standing rock heart without angina pectoris HEPATITIS C ANTIBODY [...] PM CDT Narrative 07/13/2024 4:03 PM CDT [facility]iology [address], [address], [place] [address] P:[phone] P:[phone] Echocardiographic Report Patient Name: JANETH JOSHUA D [...] FINDINGS: Interpretation Site: Exam was interpreted at [facility]. Left Ventricle: Normal left ventricular systolic function. [...] Procedure Note Fariha Mantilla MD - 07/13/2024 [facility] Cardiology [address], [address], [place] [address] P:[phone] P:[phone] Echocardiographic Report Patient Name: JANETH JOSHUA D [...] FINDINGS: Interpretation Site: Exam was interpreted at [facility]. Left Ventricle: Normal left ventricular systolic function. [...] POCT lipid panel (06/20/2024 10:59 AM CDT) [facility] Cholesterol, POC 120 mg/dL HDL, POC [...] - 05/26/2023 8:19 AM CDT Performed at: [address] [place] [id number] Geospatial Analyst: Arsalan Chance PhD, Phone: [phone] Rosaura Boss MD LAB MICROBIOLOGY - GEN ERAL ORDERABLES Final Result [facility] from Last 3 Months or Most Recently Relevant to Health Maintenance Insurance MEDICARE MEDICARE [facility] MEDICARE [facility] MEDICARE Advance Directives For more information, please contact: [phone] * Full Code (Latest Code Status on File) Date Activated Date Inactivated Comments 02/27/2020 11:12 AM 02/27/2020 7:31 PM Care Teams Export Freight Specialist Relationship Specialty Start Date End Date Yifan Lauren MD PCP - General Family Medicine 06/15/24 Jackson Reyes MD Consulting Physician Electrophysiology 02/10/23 Guillermina Augustin MD Consulting Physician Neurology 02/10/23 Fariha Mantilla MD [address] [address] Consulting Physician Cardiology 06/15/24 Kimberly Hanks MD [address] [place] [address] Referring Physician Dermatology 06/15/24
--- OUTSIDE RECORDS SUMMARY | 2024-07-24 03:12 | XMS_ITS | Clinical Summary ---
Author Organization [facility] [address] Address [address] [place] [address] Care Team Providers Care Community Service Aide Name Role Phone Jackson Reyes MD Unavailable [phone] Guillermina Augustin MD Unavailable Yifan Lauren MD Primary Care Provider Fariha Mantilla MD Unavailable [phone] Kimberly Hanks MD Unavailable [phone] Allergies Active Allergy Reactions Criticality Noted [...] of nose - follows with dermatology - [facility] dermatology - has skin lesion over left [...] risk Assessment & Plan (02/10/2023 6:45 PM KEEPER HELPER): Discussed the recommendation for mammogram screening through least age 75 or 80. Reviewed the [place] screening has been shown to help change [...] future Assessment & Plan (02/10/2023 6:43 PM KEEPER HELPER): Discussed risks and benefits associated with screening [...] ICD implanted 02/[address] Reyes at [place] - Continues on Metoprolol 125 mg BID [...] prevention Assessment & Plan (02/10/2023 6:44 PM KEEPER HELPER): History of permanent AFib status post ablation [...] now Assessment & Plan (02/10/2023 6:58 PM KEEPER HELPER): Chronic. Compensated. Continue care per Cardiology and electrophysiology Biventricular automatic impl antable cardioverter defibrillator in situ 03/04/2020 Assessment & Plan (06/18/2024 4:25 PM CDT): Continue medication and care per electrophysiology Assessment & Plan (02/10/2023 6:42 PM KEEPER HELPER): Continue medication and care per electrophysiology Coronary artery disease invo lving [place] coronary artery of [place] heart without angina pectoris 01/08/2020 Assessment & Plan (10/29/2023 3:18 PM CDT): Chronic. Denies chest pain. Continue risk factor modification with atorvastatin and Eliquis. Given patient is on full therapeutic anticoagulation okay to defer use of aspirin Assessment & Plan (02/10/2023 6:42 PM KEEPER HELPER): Chronic. Continue risk factor modification for Cardiology. [...] lifestyle Assessment & Plan (02/10/2023 6:41 PM KEEPER HELPER): Chronic. Poorly controlled in office. Patient does [...] previously Assessment & Plan (02/10/2023 6:40 PM KEEPER HELPER): Chronic. Follows with Neurology. On Nurtec every [...] refilled Assessment & Plan (02/10/2023 6:44 PM KEEPER HELPER): Patient has a degree of anxiety over [...] with Cardiology - Dr. 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 Compensated. Continue metoprolol. Monitor Assessment & Plan (02/10/2023 6:39 PM KEEPER HELPER): Chronic. Compensated. Continue medication and care per [...] recommended Assessment & Plan (02/10/2023 6:39 PM KEEPER HELPER): Chronic. For atrial fibrillation. Bleeding precautions recommended. [...] Continue. Assessment & Plan (02/10/2023 6:40 PM KEEPER HELPER): Chronic. Tolerates medication. Patient should be having [...] prevention Assessment & Plan (02/10/2023 6:40 PM KEEPER HELPER): Patient has a history of an occult [...] modification Assessment & Plan (02/10/2023 6:43 PM KEEPER HELPER): Chronic. Continue medication and care per Cardiology. [...] Department Care Team Description 07/14/2024 Results Follow-Up [facility] Cardiology at [address] [address] Fariha Mantilla MD 07/13/2024 2:30 PM CDT Ancillary Procedure [facility] Cardiology at [address] [address] Chronic combined systolic and diastolic CHF (congestive heart failure) (HCC); Dilated cardiomyopathy (HCC); Coronary artery disease involving [place] coronary artery of [place] heart without angina pectoris; Nonrheumatic mitral valve regurgitation; Nonrheumatic aortic valve insufficiency; Nonrheumatic tricuspid valve regurgitation; Biventricular automatic implantable cardioverter defibrillator in situ 06/20/2024 11:00 AM CDT Office Visit [facility] Cardiology at [address] [address] Fariha Mantilla MD Chronic anticoagulation (Primary Dx); Nonrheumatic mitral valve regurgitation; Nonrheumatic tricuspid valve regurgitation; Chronic combined systolic and diastolic CHF (congestive heart failure) (HCC); Coronary artery disease involving [place] coronary artery of [place] heart without angina pectoris; Dilated cardiomyopathy (HCC); Nonrheumatic aortic valve insufficiency 06/15/2024 10:15 AM CDT Office Visit [facility] Primary Care at [address] [address] Yifan Lauren MD Colonoscopy refused [...] Stroke (HCC) 2014 CHF (congestive heart failure) ([facility]) Anxiety Migraines 1969 Lactose intolerance 08/04/2022 Family [...] on file Legal Sex Female 3:51 AM KEEPER HELPER Gender Identity Not on file Sexual Orientation Not on file Obstetrics History Last Filed Vital Signs Vital Sign Reading Time Taken Comments Blood Pressure 128/80 06/20/2024 12:08 PM CDT Pulse 100 06/20/2024 11:02 AM CDT Temperature 36.8 C (98.2 F) 06/15/2024 10:20 AM CDT Respiratory Rate 24 02/25/2024 3:42 PM KEEPER HELPER Oxygen Saturation 94% 06/20/2024 11:02 AM CDT [...] history exists Medical Devices Implanted Type Area Enterprise Application Developer Device Identifier Shelf Expiration Date Model / Serial / Lot [employer] [id number] System 6-12fr Mvp Venous Closure Vascade - [id number] Implanted:Qty: 1 on 05/28/2020 by Jackson Reyes MD at [facility] Collagen [employer] 03/20/2022 [id number] / / [id number] Socialbomb [id number] Cardiac [place] Hf 2 Chamber Df4 Inline Cnctr Is4 - [id number] - [id number] Implanted:Qty: 1 on 02/27/2020 by Jackson Reyes MD at [facility] ICD Med[employer] Inc [id number] 06/09/2021 [id number] / [id number] S / Description:CRTD generator VF 222 bpm Burst x1, 40J x6 VT Monitor 200 bpm Medtronic Cardiac Rhythm Mgmt [id number] Sprint Quattro Secure S 55cm Df-4 Tripolar Screw Defibrillator - [id number] - [id number] Implanted:Qty: 1 on 02/27/2020 by Jackson Reyes MD at [facility] Lead Medtronic Inc 12/05/2021 [id number] / [id number] V / Description:RV lead Medtronic Inc [id number] Attain Performa Starfix 5.3fr 5.1fr 88cm Quadripolar Is4-Llll Latex Free - [id number] - [id number] Implanted:Qty: 1 on 02/27/2020 by Jackson Reyes MD at [facility] Lead [employer]onic Inc 06/17/2020 [id number] / [id number] V / Description:LV/ CS lead Medtronic Cardiac Rhythm Mgmt 5076-45 Capsurefix Novus 6.2fr 2mm 45cm Bipolar Screw In Implantable - [id number] - [id number] Implanted:Qty: 1 on 02/27/2020 by Jackson Reyes MD at [facility] Lead [employer] Inc 11/29/2021 5076-45 / [id number] / Description:RA lead Procedures Procedure Name Priority Date/Time Associated Diagnosis Comments TRANSTHORACIC ECHO (TTE) COMPLETE W DOPPLER/CF WO CONTRAST Routine 07/13/2024 2:44 PM CDT Chronic combined systolic and diastolic CHF (congestive heart failure) (HCC) Dilated cardiomyopathy (HCC) Coronary artery disease involving [place] coronary artery of [place] heart without angina pectoris Nonrheumatic mitral valve regurgitation Nonrheumatic aortic valve insufficiency Nonrheumatic tricuspid valve regurgitation Biventricular automatic implantable cardioverter defibrillator in situ POCT LIPID PANEL Routine 06/20/2024 10:5 9 AM CDT Coronary artery disease involving [place] coronary artery of [place] heart without angina pectoris HEPATITIS C ANTIBODY [...] PM CDT Narrative 07/13/2024 4:[address] [facility] Cardiology [address] , [address], [place] [address] P:[phone] P:[phone] Echocardiographic Report Patient Name: JANETH JOSHUA D [...] Interpretation Site: Exam was interpreted at [facility]. Left Ventricle: Normal left ventricular systolic function. [...] Procedure Note Fariha Mantilla MD - 07/13/2024 [facility] Cardiology [address] [facility] [address], [address], [place] [address] P:[phone] P:[phone] Echocardiographic Report Patient Name: JANETH JOSHUA D : 1950 Study Date: 07/13/2024 2:24:01 PM Gender: F Tech: Location: ED Ref Provider: FARIHA MANTILLA Height(Cm): 165 BSA: [...] Interpretation Site: Exam was interpreted at [facility]. Left Ventricle: Normal left ventricular systolic function. [...] POCT lipid panel (06/20/2024 10:59 AM CDT) [facility] Cholesterol, POC 120 mg/dL HDL, POC 61 mg/dL Triglycerides, POC 61 mg/dL LDL Cholesterol POC 47 mg/dL Chol/HDL Ratio, POC 2.0 Non-HDL Cholesterol, POC 59 mg/dL Cholesterol Total, POC 120 mg/dL Capillary blood 06/20/2024 1 0:59 AM CDT Fariha Mantilla MD POINT OF CARE TEST ORDERA BLES Final Result * Hepatitis C antibody Blood (05/25/2023 1:25 PM CDT) [facility] Hep C Ab Non Reactive Non Reactive [facility] - 01 Comment: HCV antibody alone does not differentiate between previously resolved infection and active infection. Equivocal and Reactive HCV antibody results should be followed up with an HCV RNA test to support the diagnosis of active HCV infection. Blood 05/25/2023 1:25 PM CDT 05/25/2023 Narrative [facility] - 05/26/2023 8:19 AM CDT Performed at: - [address] [id number] Firestopper Installer: Arsalan Chance PhD, Phone: [phone] Rosaura Boss MD LAB MICROBIOLOGY - GEN ERAL ORDERABLES Final Result [facility] - 01 from Last 3 Months or Most Recently Relevant to Health Maintenance Insurance MEDICARE MEDICARE [facility] MEDICARE [facility] [place] [address] Advance Directives For more information, please contact: [phone] * Full Code (Latest Code Status on File) Date Activated Date Inactivated Comments 02/27/2020 11:12 AM 02/27/2020 7:31 PM Care Teams Community Service Aide Relationship Specialty Start Date End Date Yifan Lauren MD PCP - General Family Medicine 06/15/24 Jackson Reyes MD Consulting Physician Electrophysiology 02/10/23 Guillermina Augustin MD Consulting Physician Neurology 02/10/23 Fariha Mantilla MD [address] [facility] [address] [place] [address] Consulting Physician Cardiology 06/15/24 Kimberly Hanks MD [address] [place] [address] Referring Physician Dermatology 06/15/24
--- OUTSIDE RECORDS SUMMARY | 2024-07-24 03:12 | XMS_ITS | Continuity of Care Document ---
Author Organization [facility] Address [address] [place] [address] [address] [place] [address] Phone Care Team Providers Care Supervisor Dried Yeast Name Role Phone Trevon Hendrickson OD Unavailable [...] Diagnoses Date Provider Providers Copied on Encounter [facility], [address] [place] [address] [address], [place], [place], [id number], tel:[phone] SEC Nir Macias No Information 1 Madhavi Letser. [address] [facility], [address], [id number], . tel:[phone] Referring Provider: Hansa Krishnan OD, [address] [facility], [place], [address]. tel:[phone] [facility], [address] [place] [address] [address], [place], [place], [id number], [place] tel:[phone] SEC Nir Ortegah No Information 1 Madhavi Lester. [address] [facility], [address], [id number], [place]. tel:[phone] Referring Provider: Hansa Krishnan OD, [address] [facility], [place], [address]. tel:[phone] [facility], [address] [place] [address] [address], [place], [place], [id number], [place] tel:[phone] SEC Nir [place]te[place] No Information 1 Madhavi Lester. [address] [facility], [facility] [address], [place], [id number], [place]. tel:[phone] Referring Provider: Hansa Krishnan OD, [address] [facility], [place], [address]. tel:[phone] [facility], [address], [place], [place], [id number], [place] tel:[phone] [facility] No Information 1 Dennis León. [address] [facility], [address], [place], [place], [id number], [place]. tel:[phone] Referring Provider: Hansa Krishnan OD, [address] [facility], [place], [address]. tel:[phone] [facility], [address], [place], [place], [address], [place] tel:[phone] SEC Nir N Lindberg[place] No Information 1 Dennis León. [address] [facility], [address], [place], [place], [address], [place]. tel:[phone] Referring Provider: Hansa Krishnan OD, [address] [facility], [place], [address]. tel:[phone] [facility], [address], [place], [place], [address], [place] tel:[phone] SEC Nir N [place] No Information 1 Madhavi Lester. [address] [facility], [address], [place], [place], [id number], [place]. tel:[phone] Referring Provider: Hansa Krishnan OD, [address] [facility], [place], [address]. tel:[phone] [facility], [address], [place], [place], [address], [place] tel:[phone] SEC [place] No Information 1 Hendricksonrick Lester. [address] [facility], [address], [place], [place], [address], . tel:[phone] Referring Provider: Hansa Krishnan OD, [address] [facility], [place], [address]. tel:[phone] [facility], [address] [place] [address] [address], [place], [place], [address], tel:[phone] [facility] [place] No Information 7 [address] [place] [address] [employer] [facility], [address], [place], [place], [address], [place]. tel:[phone] Referring Provider: Hansa Krishnan OD, [address] [facility], [place], [address]. tel:[phone] Office/outpa tient Visit, [facility], [address] [place] [address] [address], [place], [place], [id number], tel:[phone] SEC [place] [facility] POST SUBCAP SENILE CATARPAVING STONE DEGENERATANTERIO R SYNECHIAE 0-201 0 Dennis León. [address] [place] [address] [employer] [facility], [address], [place], [place], [id number], [place]. tel:[phone] Referring Provider: Hansa Krishnan OD, [address] [facility], [place], [address]. tel:[phone] Family History Family Member Type Diagnosis Age At Onset Father Problem (finding) diabetes melli tus in first degree relative Grandfather (m) Problem (finding) glaucoma Grandfather (p) Problem (finding) glaucoma Payers Payer name Insurance type Covered green party ID Authoriza tion(s) No Information Social History [...]
--- OUTSIDE RECORDS SUMMARY | 2024-07-24 03:12 | XMS_ITS | Encounter Summary ---
Author Organization [facility] Healthcare Address [address] [place] [address] Care Team Providers Care Release Specialist Name Role Phone Jackson Reyes MD Unavailable [phone] Guillermina Augustin MD Unavailable [phone] Yifan Lauren MD Primary Care Provider Adolph Mantilla MD Unavailable [phone] Kimberly Hanks MD Unavailable [phone] Encounter Details Date Type Department Care Team (Late st Contact Info) Description 07/14/2024 Results Follow-Up [facility] Cardiology at [address] [place] [address] Adolph Mantilla MD [address] [address] Social History Tobacco Use Types [...] on file 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 Gender Identity Not on file Sexual Orientation Not on file documented as of this encounter Plan of Treatment Not on file documented as of this encounter Visit Diagnoses Not on filedocumented in this encounter Care Teams Release Specialist Relationship Specialty Start Date End Date Yifan Lauren MD PCP - General Family Medicine 06/15/24 Jackson Reyes MD Consulting Physician Electrophysiology 02/10/23 Guillermina Augustin MD Consulting Physician Neurology 02/10/23 Adolph Mantilla MD [address] [facility] [address] [place] [address] Consulting Physician Cardiology 06/15/24 Kimberly Hanks MD [address] [place] [address] Referring Physician Dermatology 06/15/24 documented as of this encounter
--- OUTSIDE RECORDS SUMMARY | 2024-07-24 03:12 | XMS_ITS ---
Author Organization [facility] [address] Address [address] [place] [address] Care Team Providers Care Pointer Machine Operator Name Role Phone Jackson Reyes MD Unavailable [phone] Guillermina Augustin MD Unavailable [phone] Yifan Lauren MD Primary Care Provider Adolph Mantilla MD Unavailable Kimberly Hanks MD Unavailable [phone] Active Problems Problem Noted Date Diagnosed [...] risk Assessment & Plan (02/10/2023 6:45 PM PLANT ASSIGNER): Discussed the recommendation for mammogram screening through least age 75 or 80. Reviewed the [place] screening has been shown to help change [...] future Assessment & Plan (02/10/2023 6:43 PM PLANT ASSIGNER): Discussed risks and benefits associated with screening [...] ICD implanted 02/[address] Reyes at [place] - Continues on Metoprolol 125 mg BID [...] prevention Assessment & Plan (02/10/2023 6:44 PM PLANT ASSIGNER): History of permanent AFib status post ablation [...] now Assessment & Plan (02/10/2023 6:58 PM PLANT ASSIGNER): Chronic. Compensated. Continue care per Cardiology and electrophysiology Biventricular automatic impl antable cardioverter defibrillator in situ 03/04/2020 Assessment & Plan (06/18/2024 4:25 PM CDT): Continue medication and care per electrophysiology Assessment & Plan (02/10/2023 6:42 PM PLANT ASSIGNER): Continue medication and care per electrophysiology Coronary artery disease invo lving [place] coronary artery of [place] heart without angina pectoris 01/08/2020 Assessment & Plan (10/29/2023 3:18 PM CDT): Chronic. Denies chest pain. Continue risk factor modification with atorvastatin and Eliquis. Given patient is on full therapeutic anticoagulation okay to defer use of aspirin Assessment & Plan (02/10/2023 6:42 PM PLANT ASSIGNER): Chronic. Continue risk factor modification for Cardiology. [...] lifestyle Assessment & Plan (02/10/2023 6:41 PM PLANT ASSIGNER): Chronic. Poorly controlled in office. Patient does [...] previously Assessment & Plan (02/10/2023 6:40 PM PLANT ASSIGNER): Chronic. Follows with Neurology. On Nurtec every [...] refilled Assessment & Plan (02/10/2023 6:44 PM PLANT ASSIGNER): Patient has a degree of anxiety over [...] with Cardiology - Dr. 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 Compensated. Continue metoprolol. Monitor Assessment & Plan (02/10/2023 6:39 PM PLANT ASSIGNER): Chronic. Compensated. Continue medication and care per [...] recommended Assessment & Plan (02/10/2023 6:39 PM PLANT ASSIGNER): Chronic. For atrial fibrillation. Bleeding precautions recommended. [...] Continue. Assessment & Plan (02/10/2023 6:40 PM PLANT ASSIGNER): Chronic. Tolerates medication. Patient should be having [...] prevention Assessment & Plan (02/10/2023 6:40 PM PLANT ASSIGNER): Patient has a history of an occult [...] modification Assessment & Plan (02/10/2023 6:43 PM PLANT ASSIGNER): Chronic. Continue medication and care per Cardiology. [...]
--- NOTE | 2024-07-24 03:19 | ED_ITS ---
HPI - General Adult General Chief complaint: Unspecified Stated complaint: cat scratch Time Seen by Provider: 07/24/24 02:57 History of Present Illness HPI narrative: This is a 74-year-old female on Eliquis presenting with a hematoma. She was laying in bed when her cat jumped up onto her. She suffered a scratch to her chin into the back of her hand. She developed a small hematoma on the back for hand that is about 2 and half by to have cm. She was concerned because she is on Eliquis came to the hospital for evaluation. She did not get bit by the cat. They are up-to-date on her shots. The hematoma has stopped expanding and is now stable. Related Data Home Medications ?Medication ?Instructions ?Recorded ?Confirmed ?Last Taken ?Type Pradaxa 150 mg PO DAILY 01/14/19 11/08/19 11/06/19 20:00 History atorvastatin 10 mg PO DAILY 01/14/19 11/08/19 Unknown History diltiazem HCl 60 mg tablet 60 mg PO TID 01/14/19 11/08/19 Unknown History doxazosin 1 mg tablet 1 mg PO DAILY 01/14/19 11/08/19 Unknown History lorazepam 0.5 mg tablet 0.5 mg PO BID PRN Anxiety 01/14/19 11/08/19 Unknown History metoprolol tartrate 100 mg tablet 100 mg PO Q12H 01/14/19 11/08/19 Unknown History dabigatran etexilate 150 mg 150 mg PO DAILY 11/08/19 11/08/19 Unknown History capsule (Pradaxa) fluticasone propionate 50 intranasal 11/08/19 Unknown History mcg/actuation nasal spray,suspension gabapentin 100 mg capsule 100 mg PO TID 11/08/19 11/08/19 Unknown History Allergies Allergy/AdvReac Type Severity Reaction Status Date / Time cefaclor Allergy Intermediate RASH Verified 07/24/24 02:50 lisinopril Allergy Unknown TINGLING Verified 07/24/24 02:50 ALL OVER/NAUSEA/HEADACHES losartan Allergy Unknown ACUTE ABD Verified 07/24/24 02:50 PAIN Penicillins Allergy Unknown Rash Verified 07/24/24 02:50 spironolactone Allergy Unknown TINGLING Verified 07/24/24 02:50 ALL OVER/BROUGHT ON ATRIAL FIB ATTACKS erythromycin base AdvReac Intermediate VOMITING. Verified 07/24/24 02:50 codeine AdvReac Vomiting Verified 07/24/24 02:50 lactase (From Dairy Aid) AdvReac Diarrhea Verified 07/24/24 02:50 mushroom AdvReac Abdominal Verified 07/24/24 02:50 Pain valsartan AdvReac Migraine Verified 07/24/24 02:50 seafood AdvReac Abdominal Uncoded 07/24/24 02:50 Pain PMFSH Past Medical History Medical History Anxiety and depression Basal cell carcinoma Cardiomyopathy Drug intolerance multiple drug intolerances including migraine secondary to valsartan and lisinopril, losartan causing abdominal pain and diarrhea and others. Hyperlipidemia Hypertension Hyponatremia LBBB (left bundle branch block) Migraine PAF (paroxysmal atrial fibrillation) TIA (transient ischemic attack) Family History Family History (Updated 11/09/19 @ 08:34 by Janessa Gilmore MD) Father Heart disease CABG in her early 50s redo in early 60s Hypertension Diabetes mellitus Social History Social History (Updated 11/09/19 @ 08:34 by Janessa Gilmore MD) Social History: , has grandchildren Smoking status: Never smoker Second hand tobacco smoke exposure: No Substance use: never Living arrangements: with family Spiritual care concerns: No Exam Narrative: APPEARANCE: No apparent distress. Head: atraumatic. EYES: EOMI, NOSE: Atraumatic NECK: Trachea midline RESPIRATORY: No increased rate of breathing CARDIOVASCULAR: RRR, no peripheral edema ABDOMINAL: Non-distended MUSCULOSKELETAl: No obvious deformities NEURO: Alert. Moving 4/4 extremities SKIN:: 2.5 x 2.5 cm hematoma to the dorsum of the right hand. Small scratch on the patient's lip PSYCHIATRIC: Normal affect Course Vital Signs Vital signs: Vital Signs Temperature 97.8 F 07/24/24 02:55 Pulse Rate 102 H 07/24/24 02:55 Respiratory Rate 16 07/24/24 02:55 Blood Pressure 187/103 H 07/24/24 02:55 Pulse Oximetry 98 07/24/24 02:55 Oxygen Delivery Room Air 07/24/24 02:55 Temperature 97.8 F 07/24/24 02:55 Pulse Rate 102 H 07/24/24 02:55 Respiratory Rate 16 07/24/24 02:55 Blood Pressure 187/103 H 07/24/24 02:55 Pulse Oximetry 98 07/24/24 02:55 Oxygen Delivery Room Air 07/24/24 02:[address] [facility] Narrative Medical decision making narrative: -Course: This 74-year-old female presenting with concerns about hematoma her hand. Hematoma has stabilized. It will absorb over time. Patient has some scratches but was not bitten. We discussed antibiotics and this time she would like to hold off. She develops signs of infection she will see her primary care physician. Patient discharged. Vital Signs Vital Signs: Vital Signs Temperature 97.8 F 07/24/24 02:55 Pulse Rate 102 H 07/24/24 02:55 Respiratory Rate 16 07/24/24 02:55 Blood Pressure 187/103 H 07/24/24 02:55 Pulse Oximetry 98 07/24/24 02:55 Oxygen Delivery Room Air 07/24/24 02:55 Temperature 97.8 F 07/24/24 02:55 Pulse Rate 102 H 07/24/24 02:55 Respiratory Rate 16 07/24/24 02:55 Blood Pressure 187/103 H 07/24/24 02:55 Pulse Oximetry 98 07/24/24 02:55 Oxygen Delivery Room Air 07/24/24 02:55 Discharge Plan Discharge Clinical Impression: Hematoma, Scratch Patient Disposition: Home Condition: Stable Instructions: Antibiotic Form, Hematoma (ED) Additional Instructions: Please follow-up with your primary care physician for further management. Your hematoma will absorb over time. If you develop signs of infection from the scratches please return to the ED or see your PCP for further management. Patient Language: Tajik Prescriptions: No Action doxazosin 1 mg Tablet 1 mg PO DAILY metoprolol tartrate 100 mg Tablet 100 mg PO Q12H lorazepam 0.5 mg Tablet 0.5 mg PO BID PRN (Reason: Anxiety) diltiazem HCl 60 mg Tablet 60 mg PO TID Pradaxa 150 mg PO DAILY atorvastatin 10 mg PO DAILY [id number] [Fioricet] 50-300-40 mg capsule 1 cap PO Q4-6H PRN (Reason: pain) Qty: 20 1RF Rx Instructions: Do not take with Ultram, at least 4 hours apart gabapentin 100 mg capsule 100 mg PO TID fluticasone propionate 50 mcg/actuation spray,suspension INTRANASAL Pradaxa 150 mg Capsule 150 mg PO DAILY Follow-up/Referrals: Mila,Adeline Brand MD [Primary Care Provider] -
== END 2024-07-24 03:34 | disposition home or self-care (01) ==
PROVIDERS: Emergency Provider Emergency Medicine; PCP Family Medicine
DX: S60.221A Contusion of right hand, initial encounter (principal); S00.511A Abrasion of lip, initial encounter; I10 Essential (primary) hypertension; I48.0 Paroxysmal atrial fibrillation; E78.5 Hyperlipidemia, unspecified; F41.9 Anxiety disorder, unspecified; F32.A Depression, unspecified; Z85.828 Personal history of other malignant neoplasm of skin; Z86.73 Personal history of transient ischemic attack (TIA), and cerebral infarction without residual deficits; Z79.01 Long term (current) use of anticoagulants; Z79.899 Other long term (current) drug therapy; W55.03XA Scratched by cat, initial encounter
CPT/HCPCS: 99281